=== PATIENT | female | born 1950 | race Caucasian/White ===

== ENCOUNTER → 2020-05-11 10:31 | Outpatient (BNVA) | payer MEDICARE, OTHER, SELFPAY | PROVIDERS: Visit Provider Family Medicine | DX: I10 Essential (primary) hypertension (principal); E78.00 Pure hypercholesterolemia, unspecified | CPT/HCPCS: 80053; 80061; 85025 ==

== ENCOUNTER → 2020-05-26 13:06 | Outpatient (BNVA) | payer MEDICARE, OTHER, SELFPAY | PROVIDERS: Visit Provider Surgery | DX: K22.2 Esophageal obstruction (principal) | CPT/HCPCS: 87635 ==

== ENCOUNTER 2020-05-31 08:26 | Day surgery (SDC) | payer MEDICARE, OTHER, SELFPAY ==
[2020-05-31 08:49] VITALS: BP 134/67; PULSE 85; RESP 18; TEMP 36.4; O2SAT 96
--- NOTE | 2020-05-31 08:50 | P.HP_ITS ---
Same Day Surgery H&P Indication for Procedure/HPI DATE OF PROCEDURE: May 31, 2020 CHIEF COMPLAINT/INDICATIONFOR SURGICAL PROCEDURE: Dysphagia PREOP DIAGNOSIS: Esophageal stenosis PLANNED PROCEDRUE: Operation Date: 05/31/20 09:30 Proposed Procedures p EGD Dilation W/ Balloon 93404 K22.2(Not Applicable) - Adrian Vizcarra MD Medications/Allergies* Home Medications Medication Instructions Recorded Confirmed Type acetaminophen 500 mg capsule 500 mg PO BID PRN cap 10/14/19 05/27/20 History aspirin 81 mg tablet,delayed 81 mg PO DAILY 10/14/19 05/27/20 History release cetirizine 10 mg tablet 5 mg PO DAILY PRN 10/14/19 05/27/20 History cholecalciferol (vitamin D3) 50 50 mcg PO DAILY 10/14/19 05/27/20 History mcg (2,000 unit) capsule docusate sodium 100 mg capsule 100 mg PO DAILY 10/14/19 05/27/20 History potassium 99 mg tablet 99 mg PO DAILY 10/14/19 05/27/20 History Allergies/Adverse Reactions Allergy/AdvReac Type Severity Reaction Status Date / Time codeine Allergy loopy Verified 05/11/20 08:01 feeling Pertinent History/Comorbid Conditions* Medical History (Updated 12/31/19 @ 13:59 by Raciel Quinteros MD) Esophageal stenosis GERD without esophagitis History of hepatitis C Hypercholesteremia Hypertension Osteoarthritis Surgical History (Updated 01/11/20 @ 13:57 by Adrian Vizcarra MD) H/O tubal ligation History of thyroidectomy Family History (Updated 01/11/20 @ 13:50 by Greta Dimas LPN) Diabetes Brother Cancer Father lung Mother lung Brother lung Sister breast, lung Denies family history of CAD (coronary artery disease) Anesthesia complication Bleeding disorder Social History Smoking and tobacco status: current every day smoker Alcohol intake: never Household members: family Marital status: Single Current occupational status: retired History of recent travel: No Pertinent Exam Findings alert, oriented x 3 and regular rate & rhythm Recommendations Surgery/Procedure today Coding Level of Care Code Acute Technical Operations Specialist for Chg Myron
[2020-05-31] MEDS: sodium chloride 0.9% 1,000 ML 30 ML IV (09:11)
--- NOTE | 2020-05-31 09:33 | ANES.PREANE2 ---
Pre-Anesthetic Assessment Pre-Anesthetic Assessment: Height/Weight: Height 1.6 m Weight 78.018 kg Temp Pulse Resp BP Pulse Ox 97.5 F L 85 18 134/67 96 05/31/20 08:49 05/31/20 08:49 05/31/20 08:49 05/31/20 08:49 05/31/20 08:49 Preop Diagnosis: Esophageal stenosis Proposed Procedure: Operation Date: 05/31/20 09:30 Proposed Procedures p EGD Dilation W/ Balloon 48563 K22.2(Not Applicable) - Adrian Vizcarra MD Familial anesthetic complications: None Was Beta Maddison taken within 24 hours: N/A Last intake: Intake Last Liquid Date 05/30/20 Last Liquid Time 23:30 Last Solid Date 05/30/20 Last Solid Time 17:30 Social: Social History: Tobacco and No alcohol Exam: Pre-Anes Outpt Exam: alert, oriented x 3, clear to auscultation bilaterally and regular rate & rhythm Airway: Cervical ROM: WNL MP: 3 Dentition: Other (missing) CV/HEM: CV/HEM: HTN Hepatic: Hepatic: Hepatitis (C) GI: Comments: esophogeal stenosis Metabolic: Metabolic: Hyperlipidemia Anesthetic Plan: ASA status: 3 Anesthesia: MAC Risk of > 500 ml blood loss (7ml/kg in children): No Meds/Allergies Current Medications: Current Medications Generic Name Dose Route Start Last Admin Trade Name Freq PRN Reason Stop Dose Admin Sodium Chloride 1,000 mls @ 30 ml s/hr 05/31/20 08:45 05/31/20 09:11 Sodium Chloride 0.9% IV 06/01/20 08:44 30 mls/hr .Q24H NEGRITO Administration PFSH Anesthesia PFSH: Medical History Esophageal stenosis GERD without esophagitis History of hepatitis C Hypercholesteremia Hypertension Osteoarthritis Surgical History H/O tubal ligation History of thyroidectomy Family History Father Cancer lung Mother Cancer lung Brother Cancer lung Diabetes Sister Cancer breast, lung Denies family history of CAD (coronary artery disease) Anesthesia complication Bleeding disorder Social History Smoking and tobacco status: current every day smoker Alcohol intake: never Household members: family Marital status: Single Current occupational status: retired History of recent travel: No Data Anesthesia Cardiac Studies: No Data to Display
[2020-05-31 10:39] VITALS: BP 128/65; PULSE 83; RESP 18; TEMP 36.3; O2SAT 98
--- NOTE | 2020-05-31 10:41 | ANE.PACU2 ---
Inpatient post-anesthesia follow up: Airway intact: Yes Vital signs: Temperature 97.3 F Pulse Rate 83 Respiratory Rate 18 Blood Pressure 128/65 Pulse Oximetry 98 Oxygen Delivery Me thod Nasal Cannula Oxygen Flow Rate 2 Fraction of Inspir ed Oxygen Hydration adequate: Yes Nausea and vomiting: No Pain level: 1 Mental status: Baseline
--- NOTE | 2020-05-31 10:43 | SUR.OPER ---
1020 Balloon dilation with 12, 13.5, 15 and 15 16.5 and 18
[2020-05-31 10:49] VITALS: BP 129/85; PULSE 64; RESP 18; O2SAT 100
== END 2020-05-31 10:55 | disposition home or self-care (01) ==
PROVIDERS: Visit Provider Surgery
DX: K22.2 Esophageal obstruction (principal); I10 Essential (primary) hypertension; E78.5 Hyperlipidemia, unspecified; E78.00 Pure hypercholesterolemia, unspecified; E89.0 Postprocedural hypothyroidism; Z80.1 Family history of malignant neoplasm of trachea, bronchus and lung; F17.200 Nicotine dependence, unspecified, uncomplicated; Z86.19 Personal history of other infectious and parasitic diseases; Z79.82 Long term (current) use of aspirin
CPT/HCPCS: 12345; 43239; 43249; 88305; J2704; J7030

== ENCOUNTER 2021-03-12 19:42 | Emergency (ER) | payer MEDICARE, SELFPAY ==
[2021-03-12 19:50] VITALS: BP 154/73; PULSE 96; RESP 17; TEMP 36.6; O2SAT 98; BMI 30.1
--- NOTE | 2021-03-12 22:15 | W.ED.ABDPA2 ---
HPI - Abdominal Pain General: Chief Complaint: Airway/Esophagus Foreign Body Stated Complaint: food stuck in throat Time Seen by Provider: 03/12/21 22:15 History of Present Illness: HPI narrative: 71-year-old female comes in today with complaints of food bolus. Patient states that she was attempting to eat some pork chop this afternoon and swallowed it but it got stuck. Patient reports that she has had issues with this in the past with her last esophageal dilation done May of last year. Patient takes famotidine routinely for her reflux. Patient appears well. Patient appears in mild discomfort but no acute distress. Patient is unable to swallow liquids without regurgitation occurring. Review of Systems General: Reports: 10 or more systems reviewed and unremarkable except in HPI and below GI: Reports: dysphagia PFSH ED PFSH: Medical History Esophageal stenosis GERD without esophagitis History of hepatitis C Hypercholesteremia Hypertension Osteoarthritis Surgical History H/O esophagogastroduodenoscopy (05/31/20) with balloon dilation H/O tubal ligation History of thyroidectomy Family History Father Cancer lung Mother Cancer lung Brother Cancer lung Diabetes Sister Cancer breast, lung Denies family history of CAD (coronary artery disease) Anesthesia complication Bleeding disorder Social History Smoking and tobacco status: current every day smoker Alcohol intake: never Household members: family Marital status: Single Current occupational status: retired History of recent travel: No Physical Exam Const: COMMON NORMALS: no acute distress and patient oriented x3 GENERAL APPEARANCE: cooperative HENMT: COMMON NORMALS: normocephalic, TM's normal bilaterally and Normal external nose present HEAD & SCALP: normal to inspection and normocephalic NOSE: Normal external nose present TYMPANIC MEMBRANE: TM's normal bilaterally MOUTH: Normal oral and palatal mucosa present THROAT: posterior oropharynx normal Eye: GENERAL EYE: appearance normal, both eyes and all related structures Neck/C-Spine: COMMON NORMALS: full ROM Chest: COMMONS NORMALS: normal inspection of the chest Resp: COMMON NORMALS: normal respiratory effort EFFORT & INSPECTION: Yes able to speak in complete sentences Cardio: COMMON NORMALS: regular rate and regular rhythm RATE: regular rate RHYTHM: regular rhythm GI: COMMON NORMALS: Soft to palpation and non-tender PALPATION: Yes Soft to palpation : COMMON NORMALS: Yes no CVA tenderness BLADDER/KIDNEY EXAM: Yes no CVA tenderness Back/Pelvis: COMMON NORMALS: no CVA tenderness and thoracic and lumbar spine normal to inspection Extremity: COMMON NORMALS: normal to inspection Neuro: COMMON NORMALS: patient oriented x3 and moves all extremities Psych: COMMON NORMALS: mental status grossly normal and cooperative Skin: COMMON NORMALS: no rashes or lesions noted GENERAL SKIN EXAM: no rashes or lesions noted Course ED course: 2304, discussed patient with Dr. Padilla who recommended we try therapy with sublingual nitro, 1 mg of glucagon, and a coke. Reviewed this with patient who was agreed to try. 2329, patient reported resolution of food bolus. Patient was able to drink water without pain or discomfort. No changes in auscultation of lung sounds. No abdominal pain. Patient denied any pain otherwise. Vital Signs: Vital signs: Vital Signs Temperature 97.9 F 03/12/21 19:50 Pulse Rate 96 03/12/21 19:50 Respiratory Rate 17 03/12/21 19:50 Blood Pressure 154/73 03/12/21 19:50 Pulse Oximetry 98 03/12/21 19:50 MDM - Abdominal Pain MDM Narrative: Medical decision making narrative: Patient came in tonight for a esophageal obstruction with a food bolus. On exam patient was in no acute distress. Patient was frequently spitting out clear fluid. Patient reports she had tried drinking water several times without being able to pass the piece of meat that she was eating. On exam abdomen was soft and nontender. Lungs were wheezy due to patient's chronic COPD. Vital signs were normal. Differential diagnosis includes esophageal stricture, food bolus, esophageal rupture. Chest x-ray showed a hiatal hernia but no obvious abnormality. Patient was treated with 1 nitroglycerin tablet under the tongue, 1 mg of glucagon IV push, followed by a Coke. Patient was able to pass the bolus with no difficulty. Patient denied any pain or discomfort and was able to drink water without any other signs or symptoms of esophageal rupture. Patient was released to home recommended to increase her famotidine to 20 mg twice a day and to follow-up with primary care or surgeon for an EGD. Discharge Plan Discharge Patient Disposition: Home Clinical Impression: Bolus impaction of digestive tract, Esophageal stenosis Condition: Stable Prescriptions: No Action potassium 99 mg tablet 99 mg PO DAILY RF: 0 cholecalciferol (vitamin D3) 50 mcg (2,000 unit) capsule 50 mcg PO DAILY RF: 0 aspirin 81 mg tablet,delayed release (DR/EC) 81 mg PO DAILY RF: 0 cetirizine [24Hour Allergy] 10 mg tablet 5 mg PO DAILY PRN (Reason: Pain) RF: 0 docusate sodium [Stool Softener] 100 mg capsule 100 mg PO DAILY RF: 0 acetaminophen 500 mg capsule 500 mg PO BID PRN (Reason: Pain) RF: 0 famotidine 20 mg tablet 20 mg PO DAILY Qty: 90 RF: 1 lisinopril 40 mg tablet 40 mg PO DAILY 90 Days Qty: 90 RF: 1 pravastatin 20 mg tablet 20 mg PO DAILY 90 Days Qty: 90 RF: 1 amlodipine 5 mg tablet See Rx Instructions .ROUTE .COMPLEX Qty: 90 RF: 0 tramadol 50 mg tablet 50 mg PO BID PRN (Reason: pain) 90 Days Qty: 180 RF: 0 Discharge Orders: Discharge ED (Routine); Ordered 03/12/21 Ordered By: Dano Lewis Referrals: Raciel Quinteros MD [Primary Care Provider] - Discharge Diet: Usual diet Discharge Activity: Increase activity as tolerated Patient Instructions: Esophageal Stricture (ED), Opioid Safety Activity Restrictions/Additional Instructions: Increase famotidine 20 mg to twice a day. Once in the morning once in the evening. Take smaller bites of food. Make sure to chew thoroughly meat. Drink plenty of water with meals. Follow-up with primary care or surgeon for stricture. Return to the ER as needed. Coding Level of Care Code ED Mechanical Maintenance Engineer for Chg Fwd Exam Comprehensive
--- NOTE | 2021-03-12 22:21 | XRR_ITS ---
PROCEDURE INFORMATION: Exam: XR Chest Exam date and time: 03/12/2021 10:21 PM Age: 71 years old Clinical indication: Other: Feels like a piece of meat is stuck; Prior surgery; Surgery date: 6+ months; Additional info: Food bolus TECHNIQUE: Imaging protocol: XR of the chest. Views: 2 views. COMPARISON: No relevant prior studies available. FINDINGS: Tubes, catheters and devices: Surgical clips projecting over the upper mediastinum and lower neck. Lungs: Lungs are mildly hyperinflated. No focal consolidation. No pulmonary edema. Pleural spaces: No pleural effusion. No pneumothorax. Heart/Mediastinum: Small hiatal hernia. The cardiac silhouette is mildly enlarged. Mediastinal contours are unremarkable. No pneumomediastinum. No radiopaque foreign body. Bones/joints: Unremarkable for age. XR/XR chest 2V* [id number] IMPRESSION: 1. No pneumomediastinum. No radiopaque foreign body. CT scan of the chest may be obtained for further evaluation as clinically indicated. 2. Small hiatal hernia. 3. Incidental/nonacute findings are listed in the report.
[2021-03-12] MEDS: nitroglycerin 0.4 mg sublingual Tablet SUBLINGUAL (23:04)
[2021-03-12 23:34] VITALS: BP 117/59; PULSE 94; RESP 18; O2SAT 97
== END 2021-03-12 23:34 | disposition home or self-care (01) ==
PROVIDERS: Emergency Provider Nurse Practitioner Family; PCP Family Medicine
DX: T18.128A Food in esophagus causing other injury, initial encounter (principal); K22.2 Esophageal obstruction; K44.9 Diaphragmatic hernia without obstruction or gangrene; K21.9 Gastro-esophageal reflux disease without esophagitis; E78.00 Pure hypercholesterolemia, unspecified; I10 Essential (primary) hypertension; J44.9 Chronic obstructive pulmonary disease, unspecified; F17.200 Nicotine dependence, unspecified, uncomplicated
CPT/HCPCS: 71046; 99283; J1610

== ENCOUNTER → 2021-04-07 11:50 | Outpatient (BNVA) | payer MEDICARE, SELFPAY | PROVIDERS: PCP Family Medicine; Visit Provider Surgery | DX: Z20.822 Contact with and (suspected) exposure to COVID-19 (principal); K22.2 Esophageal obstruction | CPT/HCPCS: 87635 ==

== ENCOUNTER 2021-04-13 07:41 | Day surgery (SDC) | payer MEDICARE, SELFPAY ==
[2021-04-10 10:25] VITALS: BMI 28.5
[2021-04-13 08:04] VITALS: BP 136/64; PULSE 78; RESP 18; TEMP 36.8; O2SAT 100
[2021-04-13] MEDS: sodium chloride 0.9% 1,000 ML 30 ML IV (08:13)
--- NOTE | 2021-04-13 08:24 | ANES.PREANE2 ---
Pre-Anesthetic Assessment Pre-Anesthetic Assessment: Height/Weight: Height 1.6 m Weight 73.028 kg Temp Pulse Resp BP Pulse Ox 98.2 F 78 18 136/64 100 04/13/21 08:04 04/13/21 08:04 04/13/21 08:04 04/13/21 08:04 04/13/21 08:04 Preop Diagnosis: upper gi symptoms Proposed Procedure: Operation Date: 04/13/21 08:30 Proposed Procedures p EGD Dilation 27540 R13.10 K22.2(Not Applicable) - Adrian Vizcarra MD Familial anesthetic complications: none Was Beta Maddison taken within 24 hours: N/A Was Clonidine taken within 24 hours: N/A Last intake: Intake Last Liquid Date 04/12/21 Last Liquid Time 23:00 Last Solid Date 04/12/21 Last Solid Time 18:30 Last Intake: 23:00 Social: Social History: Tobacco and No alcohol Packs per day: 1ppd Pack years: 50+ Exam: Pre-Anes Outpt Exam: alert, oriented x 3, clear to auscultation bilaterally and regular rate & rhythm Airway: Submandibular: WNL Cervical ROM: WNL MP: 2 Dentition: Full (multiple loose decayed, very poor) Pulmonary: Pulmonary: Cough, GUILLERMO and SOB CV/HEM: CV/HEM: HTN : : None reported Hepatic: Hepatic: Cirrohsis (C, treated) GI: GI: GERD Metabolic: Metabolic: None reported Musc/skel: Musc/skel: Lower Back Pain and OA/DJD Neuropsych: Neuropsych: None reported Anesthetic Plan: ASA status: 2 Anesthesia: MAC Risk of > 500 ml blood loss (7ml/kg in children): No Meds/Allergies Current Medications: Current Medications Generic Name Dose Route Start Last Admin Trade Name Freq PRN Reason Stop Dose Admin Sodium Chloride 1,000 mls @ 30 ml s/hr 04/13/21 08:00 04/13/21 08:13 Sodium Chloride 0.9% IV 04/14/21 07:59 30 mls/hr .Q24H NEGRITO Administration PFSH Anesthesia PFSH: Medical History (Updated 04/03/21 @ 08:26 by Adrian Vizcarra MD) Esophageal stenosis GERD without esophagitis History of hepatitis C Hypercholesteremia Hypertension Osteoarthritis Surgical History (Updated 04/03/21 @ 08:26 by Adrian Vizcarra MD) H/O esophagogastroduodenoscopy (05/31/20) with balloon dilation H/O tubal ligation History of colonoscopy 2018 History of thyroidectomy Family History Father Cancer lung Mother Cancer lung Brother Cancer lung Diabetes Sister Cancer breast, lung Denies family history of CAD (coronary artery disease) Anesthesia complication Bleeding disorder Social History Smoking and tobacco status: current every day smoker Alcohol intake: never Household members: family Marital status: Single Current occupational status: retired History of recent travel: No Data Anesthesia Cardiac Studies: No Data to Display
--- NOTE | 2021-04-13 08:32 | W.PM.OPSUD ---
Surgery/Procedure H&P Update DATE OF PROCEDURE: April 13, 2021 DATE H&P PERFORMED: 04/03/21 H&P UPDATE INFORMATION: I have reviewed H&P completed within last 30 days, I have examined patient prior to procedure and No changes to prior documentation PREOP DIAGNOSIS: upper gi symptoms PLANNED PROCEDURE: Operation Date: 04/13/21 08:30 Proposed Procedures p EGD Dilation 36515 R13.10 K22.2(Not Applicable) - Adrian Vizcarra MD
[2021-04-13 09:10] VITALS: BP 96/52; PULSE 92; RESP 16; TEMP 36.4; O2SAT 98
[2021-04-13 09:20] VITALS: BP 102/58; PULSE 79; RESP 18; TEMP 36.6; O2SAT 99
== END 2021-04-13 09:37 | disposition home or self-care (01) ==
PROVIDERS: PCP Family Medicine; Visit Provider Surgery
DX: R13.10 Dysphagia, unspecified (principal); K44.9 Diaphragmatic hernia without obstruction or gangrene; K22.2 Esophageal obstruction; I10 Essential (primary) hypertension; Z86.19 Personal history of other infectious and parasitic diseases; E78.00 Pure hypercholesterolemia, unspecified; M19.90 Unspecified osteoarthritis, unspecified site; F17.210 Nicotine dependence, cigarettes, uncomplicated
CPT/HCPCS: 43239; 43249; 88305; 96360; J2704; J7030

== ENCOUNTER 2021-04-17 12:35 | Outpatient (CLI) | payer MEDICARE, SELFPAY | END 2021-04-17 12:36 | disposition home or self-care (01) | LOC: LAB 06-16 15:34 | PROVIDERS: PCP Family Medicine; Visit Provider Family Medicine | DX: I35.0 Nonrheumatic aortic (valve) stenosis (principal); Z72.0 Tobacco use; E78.00 Pure hypercholesterolemia, unspecified; I10 Essential (primary) hypertension | CPT/HCPCS: 80053; 80061; 82728; 83540; 85025 ==

== ENCOUNTER 2021-04-18 09:56 | Outpatient (CLI) | payer MEDICARE, SELFPAY ==
[2021-04-18] VITALS (12 sets, daily range): BP systolic 119–185; BP diastolic 70–86; PULSE 76–105; RESP 15–18; TEMP 36.1–36.7; O2SAT 95–100; BMI 28.8
--- NOTE | 2021-04-18 10:55 | ED_ITS ---
HPI - Weakness General: Chief complaint: Weakness Stated complaint: PCP SENT FOR BLOOD Time Seen by Provider: 04/18/21 10:15 History of Present Illness: HPI Narrative: 71-year-old female sent to the ER by her primary care doctor. She is feeling weak lightheaded has been for some time was seen by her primary care doctor yesterday labs were done the results came back today and showed a hemoglobin of 5.7. She previously had blood transfusions. She denies any hematochezia melena hematemesis coffee-ground a few weeks ago she had an esophageal dilation but has been doing well since then. She could not tell me anything about previous colonoscopy. She has not had any noted blood loss or surgeries recently. She denies taking any anticoagulants. MD Complaint: generalized weakness Onset (ago): week(s) Duration: constant Location: generalized Severity: mild Relieving factors: none Exacerbating factors: none Associated symptoms: Denies chest pain, chills, confusion, melena, decreased appetite, diaphoresis, dysuria, easy bruising, fever(s), headache(s), myalgias, nausea, rash, short of breath, syncope or vomiting Review of Systems Const: Denies: fever(s), chills or diaphoresis ENMT: Denies: throat pain, ear or mastoid pain, nasal discharge or nasal congestion Card: Denies: chest pain or syncope Resp: Denies: dyspnea, productive cough or non-productive cough GI: Denies: nausea, vomiting or melena : Denies: dysuria Skin/Breast: Denies: rash or pruritus Neuro: Denies: headache(s) or confusion Clay/Lymph: Denies: easy bruising PFS ED PFSH: Medical History COPD (chronic obstructive pulmonary disease) Esophageal stenosis GERD without esophagitis History of hepatitis C Hypercholesteremia Hypertension Osteoarthritis Surgical History H/O esophagogastroduodenoscopy (04/13/21) with balloon dilation 05/31/20: with dilation H/O tubal ligation History of colonoscopy 2018 History of thyroidectomy Family History Father Cancer lung Mother Cancer lung Brother Cancer lung Diabetes Sister Cancer breast, lung Denies family history of CAD (coronary artery disease) Anesthesia complication Bleeding disorder Social History Smoking and tobacco status: current every day smoker Alcohol intake: never Household members: family Marital status: Single Current occupational status: retired History of recent travel: No Physical Exam Const: COMMON NORMALS: no acute distress GENERAL APPEARANCE: cooperative and comfortable ORIENTATION/CONSCIOUSNESS: Yes awake, Yes oriented to person, Yes oriented to place and Yes oriented to time HENMT: COMMON NORMALS: normocephalic, atraumatic and hearing grossly normal bilaterally HEAD & SCALP: normocephalic and atraumatic Neck/C-Spine: COMMON NORMALS: no JVD Resp: COMMON NORMALS: normal respiratory effort, No retractions, No use of accessory muscles and clear to auscultation bilaterally AUSCULTATION: clear to auscultation bilaterally Cardio: COMMON NORMALS: no JVD, regular rate, regular rhythm and No murmurs present (Cardio) RATE: regular rate RHYTHM: regular rhythm GI: COMMON NORMALS: Soft to palpation and No hepatosplenomegaly present AUSCULTATION: Yes normoactive bowel sounds PALPATION: Yes Soft to palpation, No Tenderness to palpation present (GI), No Guarding due to palpation present (GI) and Yes No hepatosplenomegaly present Extremity: COMMON NORMALS: normal to inspection, capillary refill normal, no clubbing, cyanosis or edema, no calf tenderness and no pedal edema Neuro: SENSORIUM/ORIENTATION: Yes oriented to person, Yes oriented to place and Yes oriented to time Skin: COMMON NORMALS: no rashes or lesions noted GENERAL SKIN EXAM: no rashes or lesions noted Course Vital Signs: Vital signs: Vital Signs Temperature 97.9 F 04/18/21 13:12 Pulse Rate 78 04/18/21 13:29 Respiratory Rate 18 04/18/21 13:29 Blood Pressure 153/71 04/18/21 13:29 Pulse Oximetry 99 04/18/21 13:12 MDM - Weakness MDM Narrative: Medical decision making narrative: Repeat hemoglobin this morning is 6 1. We will transfuse her 2 units and discharge her home will do it as an outpatient to better discuss left collection. Initial anemia work-up dry prior to transfusion so as not to lose when no opportunity staff in the ER contacted Dr. Quinteros's office to ensure that he was aware and could follow-up with results later this week. Patient advised to follow-up with her primary care doctor later this week. Lab Data: Labs: Lab Results 04/18/21 04/18/21 04/18/21 10:34 10:34 10:34 WBC RBC Hgb Hct MCV MCH MCHC RDW Plt Count MPV Neut % (Auto) Lymph % (Auto) [place] % (Auto) Eos % (Auto) Baso % (Auto) Reticulocyte % (Au to) Neut # (Auto) Lymph # (Auto) [place] # (Auto) Eos # (Auto) Baso # (Auto) Nucleated RBC % (a uto) Nucleated RBCs # Haptoglobin 170.0 mg/L mg/L (30-200) Sodium 135 mmol/L L mmol /L (136-145) Potassium 4.2 mmol/L mmol/L (3.5-5.1) Chloride 102 mmol/L mmol/L (98-107) Carbon Dioxide 23 mmol/L mmol/L (22-29) Anion Gap 14.2 (5-19) BUN 22 mg/dL mg/dL (8-23) Creatinine 1.1 mg/dL H mg/dL (0.5-0.9) GFR Calculation Not Reportable Glucose 93 mg/dL mg/dL (65-115) Calculated Osmolal ity 283 mOsm/kg L mOs m/kg (285-295) Calcium 8.9 mg/dL mg/dL (8.5-10.5) Iron 12 ug/dL L ug/dL (37-145) TIBC 390 mcg/dl mcg/dl % Saturation 3.0 % L % (20-50) Unsat Iron Binding 378 ug/dL H ug/dL (112-347) Total Bilirubin 0.2 mg/dL mg/dL (0.15-1.2) AST 7 U/L U/L (0-32) ALT < 5 U/L U/L (0-33) Alkaline Phosphata se 63 IU/L IU/L (35-105) Total Protein 7.2 g/dL g/dL (6.6-8.7) Albumin 4.1 g/dL g/dL (3.5-5.2) Globulin 3.1 g/dL g/dL (1.3-4.6) Vitamin B12 416 pg/mL pg/mL (232-1245) Folate 5.2 ng/mL ng/mL (4.8-37.3) Blood Type O Positive Rho(D) Type Positive Antibody Screen Negative Crossmatch See Detail 04/18/21 10:34 WBC 3.7 10^3/uL L 10^ 3/uL (4.0-10.0) RBC 2.59 10^6/uL L 10 ^6/uL (4.1-5.3) Hgb 6.1 g/dL L* g/dL (11.5-15.3) Hct 22.0 % L % (37.0-47.0) MCV 84.9 fl fl (81-99) MCH 23.6 pg L pg (28.0-34.0) MCHC 27.7 g/dL L g/dL (30.0-36.0) RDW 16.2 % H % (12.1-15.1) Plt Count 195 10^3/cmm 10^3 /cmm (130-400) MPV 9.9 fL fL (7.4-10.4) Neut % (Auto) 50.6 % % Lymph % (Auto) 37.6 % % [place] % (Auto) 6.2 % % Eos % (Auto) 3.8 % % Baso % (Auto) 1.3 % % Reticulocyte % (Au to) 2.8 % H % (0.5-2.0) Neut # (Auto) 1.88 10^3/uL 10^3 /uL (1.8-7.7) Lymph # (Auto) 1.4 10^3/uL 10^3/ uL (0.8-4.8) [place] # (Auto) 0.2 10^3/uL 10^3/ uL (0.2-0.9) Eos # (Auto) 0.1 10^3/uL 10^3/ uL (0.0-0.8) Baso # (Auto) 0.1 10^3/uL 10^3/ uL (0.0-0.1) Nucleated RBC % (a uto) 0 % % Nucleated RBCs # 0.0 /100WBC /100W BC Haptoglobin Sodium Potassium Chloride Carbon Dioxide Anion Gap BUN Creatinine GFR Calculation Glucose Calculated Osmolal ity Calcium Iron TIBC % Saturation Unsat Iron Binding Total Bilirubin AST ALT Alkaline Phosphata se Total Protein Albumin Globulin Vitamin B12 Folate Blood Type Rho(D) Type Antibody Screen Crossmatch Discharge Plan Discharge Patient Disposition: Placed in Observation Clinical Impression: Anemia Coding Level of Care Code ED Rigging And Controls Aircraft Mechanic for Chg Fwd Exam Comprehensive
[2021-04-18 11:05] LABS: Basophils # 0.1 10^3/uL (0.0-0.1); Basophils % 1.3 %; Eosinophils # 0.1 10^3/uL (0.0-0.8); Eosinophils % 3.8 %; Lymphocytes # 1.4 10^3/uL (0.8-4.8); Lymphocytes % 37.6 %; Mean Corpuscular HGB Conc 27.7 g/dL (30.0-36.0); Mean Corpuscular Hemoglobin 23.6 pg (28.0-34.0); Mean Corpuscular Volume 84.9 fl (81-99); Mean Platelet Volume 9.9 fL (7.4-10.4); Monocytes # 0.2 10^3/uL (0.2-0.9); Monocytes % 6.2 %; Neutrophils # 1.88 10^3/uL (1.8-7.7); Neutrophils % 50.6 %; Nucleated Red Blood Cells % 0 %; Platelet Count 195 10^3/cmm (130-400); Red Blood Count 2.59 10^6/uL (4.1-5.3); Red Cell Distribution Width 16.2 % (12.1-15.1); Reticulocyte % 2.8 % (0.5-2.0); White Blood Count 3.7 10^3/uL (4.0-10.0)
[2021-04-18 11:17] LABS: Hemoglobin 6.1 g/dL (11.5-15.3)
[2021-04-18 11:18] LABS: Alanine Aminotransferase < 5 U/L (0-33); Albumin Level 4.1 g/dL (3.5-5.2); Alkaline Phosphatase 63 IU/L (35-105); Anion Gap 14.2 (5-19); Aspartate Amino Transferase 7 U/L (0-32); Blood Urea Nitrogen 22 mg/dL (8-23); Calcium 8.9 mg/dL (8.5-10.5); Carbon Dioxide 23 mmol/L (22-29); Chloride 102 mmol/L (98-107); Globulin 3.1 g/dL (1.3-4.6); Glucose 93 mg/dL (65-115); Iron 12 ug/dL (37-145); Osmolality Calculated 283 mOsm/kg (285-295); Potassium 4.2 mmol/L (3.5-5.1); Sodium 135 mmol/L (136-145); Total Bilirubin 0.2 mg/dL (0.15-1.2); Total Iron Binding Capacity 390 mcg/dl; Total Protein 7.2 g/dL (6.6-8.7); Unsaturated Iron Binding 378 ug/dL (112-347)
[2021-04-18 11:32] LABS: Vitamin B12 416 pg/mL (232-1245)
[2021-04-18 11:35] LABS: Folate Level 5.2 ng/mL (4.8-37.3)
--- NOTE | 2021-04-18 11:55 | PC.PHAR ---
pt states she takes care of her own medications-pt states she didnt get to start the chantix -medication has a recall on it-
--- NOTE | 2021-04-18 19:23 | PC.NURSE ---
Report from QUINN Rahman
[2021-04-19 12:07] LABS: Erythropoietin 319.4 mIU/mL (2.6-18.5)
== END 2021-04-18 19:58 | disposition home or self-care (01) ==
LOC: ER 10:59 → OPMS 18:32
PROVIDERS: Emergency Provider Family Medicine; PCP Family Medicine; Visit Provider Internal Medicine
DX: D64.9 Anemia, unspecified (principal); R53.1 Weakness; J44.9 Chronic obstructive pulmonary disease, unspecified; K21.9 Gastro-esophageal reflux disease without esophagitis; Z86.19 Personal history of other infectious and parasitic diseases; E78.00 Pure hypercholesterolemia, unspecified; I10 Essential (primary) hypertension; M19.90 Unspecified osteoarthritis, unspecified site; F17.210 Nicotine dependence, cigarettes, uncomplicated
CPT/HCPCS: 36430; 80053; 82607; 82668; 82746; 83010; 83540; 83550; 85025; 85045; 86850; 86900; 86920; P9016

== ENCOUNTER → 2021-04-24 11:17 | Outpatient (BNVA) | payer MEDICARE, SELFPAY | PROVIDERS: PCP Family Medicine; Visit Provider Family Medicine | DX: D64.9 Anemia, unspecified (principal); D50.8 Other iron deficiency anemias | CPT/HCPCS: 85018 ==

== ENCOUNTER 2021-05-04 10:46 | Outpatient (RCR) | payer MEDICARE, SELFPAY ==
[2021-04-27 10:38] VITALS: BP 151/68; PULSE 110; RESP 18; TEMP 36.4; O2SAT 99
[2021-04-27] MEDS: ferric carboxy (IVPB) 750 MG in sodium chloride 0.9% (100 ml) 100 ML 345 MG IV (10:50)
[2021-05-04 10:52] VITALS: BP 150/71; PULSE 85; RESP 18; TEMP 36.8; O2SAT 99
[2021-05-04] MEDS: ferric carboxy (IVPB) 750 MG in sodium chloride 0.9% (100 ml) 100 ML 345 MG IV (11:12)
== END 2021-05-14 23:59 | disposition home or self-care (01) ==
LOC: GILAB 10:46
PROVIDERS: PCP Family Medicine; Visit Provider Family Medicine
DX: D50.9 Iron deficiency anemia, unspecified (principal)
CPT/HCPCS: 96365; J1439

== ENCOUNTER → 2021-05-09 12:26 | Outpatient (BNVA) | payer MEDICARE, SELFPAY | PROVIDERS: PCP Family Medicine; Visit Provider Family Medicine | DX: M16.12 Unilateral primary osteoarthritis, left hip (principal); D50.8 Other iron deficiency anemias | CPT/HCPCS: 80053; 82668; 82728; 83550; 85025 ==

== ENCOUNTER 2021-05-10 10:30 | Outpatient (CLI) | payer MEDICARE, SELFPAY ==
--- NOTE | 2021-05-10 10:34 | XR_ITS ---
WS: [id number] HIP WITH PELVIS LEFT TECHNIQUE: 3 views of the left hip with pelvis CLINICAL INFORMATION: worsening pain left hip COMPARISON: None. FINDINGS: Advanced osteoarthritis left hip with joint space narrowing. Normal left femoral neck and proximal fe moral shaft. Normal left pubic rami. Pelvic phleboliths. No acute fractures. XR/XR hip LT 2-3V wo/w pel* [id number] IMPRESSION: Advanced osteoarthritis left hip. No acute fractures. Tonnis classification:
--- NOTE | 2021-05-10 11:30 | XR_ITS ---
WS: [id number] LUMBAR SPINE TECHNIQUE: 3 views of the lumbar spine CLINICAL INFORMATION: increasing pain in left hip and lower back COMPARISON: None. FINDINGS: Five ese-vol-weudsem lumbar vertebral bodies. Mild lumbar curve convex left. Pelvic phleboliths. Oste openia. Aortic calcification. Slight anterolisthesis L4 on L5. Slight retrolisthesis L1 on L2 and L2 on L3. Aortic calcification. Moderate facet arthropathy L5-S1. IMPRESSION: 1. Mild lumbar curve convex left. 2. No acute compression fractures. 3. Disc space narrowing worse at L1 L2-L3 and L4-L5. 4. Moderate facet arthropathy L5-S1. 5. Slight retrolisthesis L1 on L2 and L2 on L3. Slight anterolisthesis L4 on L5.
== END 2021-05-10 10:31 | disposition home or self-care (01) ==
PROVIDERS: PCP Family Medicine; Visit Provider Family Medicine
DX: M25.552 Pain in left hip (principal); M54.50 Low back pain, unspecified; M47.817 Spondylosis without myelopathy or radiculopathy, lumbosacral region
CPT/HCPCS: 72100; 73502

== ENCOUNTER 2021-05-30 12:50 | Outpatient (CLI) | payer MEDICARE, SELFPAY ==
--- NOTE | 2021-05-30 12:45 | USCV_ITS ---
Shikha Osei Age: 71 Gender: F : 1950 Exam Date: 05/30/2021 13:23 Ordering Phys: Raciel Quinteros MD Technologist: TYLER Exam Location: [facility] – [place] Indication: DYSPNEA BP: / HR: 67 Rhythm: Sinus Technical Quality: Adequate MEASUREMENTS (Male / Female) Normal Values 2D ECHO LV Diastolic Diameter PLAX 3.5 cm 4.2 - 5.9 / 3.9 - 5.3 cm LV Systolic Diameter PLAX 2.2 cm IVS Diastolic Thickness 1.1 cm 0.6 - 1.0 / 0.6 - 0.9 cm IVS Systolic Thickness 1.0 cm LVPW Diastolic Thickness 1.7 cm 0.6 - 1.0 / 0.6 - 0.9 cm LVPW Systolic Thickness 1.3 cm LVOT Diameter 2.0 cm LV Ejection Fraction 2D Teich 70.2 % LV Ejection Fraction MOD 2C 60.4 % LV Ejection Fraction 2C AL 62.5 % LA Diameter 4.3 cm LA Width 4.4 cm LA Height 5.5 cm RA Width 3.1 cm RA Height 4.9 cm Aorta at Sinotubular Diameter 2.3 cm DOPPLER AV Peak Velocity 238.5 cm/s LVOT Peak Velocity 204.0 cm/s AV Area Cont Eq vti 2.8 cm squared AV Area Cont Eq pk 2.7 cm squared MV E' Velocity 7.0 cm/s TR Peak Velocity 258.0 cm/s TR Peak Gradient 26.6 mmHg TR Mean Velocity 177.8 cm/s TR Mean Gradient 14.5 mmHg TR Velocity Time Integral 75.6 cm Right Atrial Pressure 3.0 mmHg Pulmonary Artery Systolic Pressu 29.6 mmHg RV Acceleration Time 0.2 s RV Ejection Time 0.3 s RV AcT/ET 0.5 FINDINGS Left Ventricle Normal left ventricular size and systolic function, EF 65 %. No regional wall motion abnormalities. Mild left ventricular hypertrophy. Grade I/IV diastolic dysfunction (abnormal relaxation filling pattern), normal to mildly elevated filling pressures. Right Ventricle The right ventricle is normal in size and function. Right Atrium The right atrium is normal in size. Left Atrium Mildly increased left atrial size. Mitral Valve Moderate mitral annular calcification. Mildly thickened mitral valve. Mild mitral valve regurgitation. Aortic Valve Thickened aortic valve. Tricuspid Valve Trace tricuspid valve regurgitation. Estimated pulmonary artery peak systolic pressure 30 mm of Hg. Pulmonic Valve Trace pulmonary valve regurgitation. Pericardium Normal pericardium without effusion. Aorta Normal ascending aorta dimension. CONCLUSIONS Normal left ventricular size and systolic function, EF 65 %. No regional wall motion abnormalities. Mild left ventricular hypertrophy. Grade I/IV diastolic dysfunction (abnormal relaxation filling pattern), normal to mildly elevated filling pressures. Mildly increased left atrial size. Moderate mitral annular calcification. Mildly thickened mitral valve. Trace tricuspid valveTrace pulmonary valve regurgitation. regurgitation. Estimated pulmonary artery peak systolic pressure 30 mm of Hg. Mild mitral valve regurgitation. Thickened aortic valve. There is no pericardial effusion. There are no intracardiac masses. No previous study is available for comparison. Dr Reagan Dent MD FACC (Electronically Signed) Final Date: 30 May 2021 21:11 S
== END 2021-05-30 12:51 | disposition home or self-care (01) ==
LOC: US 12:52
PROVIDERS: PCP Family Medicine; Visit Provider Family Medicine
DX: R06.00 Dyspnea, unspecified; I08.3 Combined rheumatic disorders of mitral, aortic and tricuspid valves
CPT/HCPCS: 80053; 80061; 82728; 83540; 85025; 93306

== ENCOUNTER → 2021-06-15 15:14 | Outpatient (BNVA) | payer MEDICARE, SELFPAY | PROVIDERS: PCP Family Medicine; Referring Provider Family Medicine; Visit Provider Orthopaedic Surgery | DX: M54.9 Dorsalgia, unspecified (principal); M51.37 Other intervertebral disc degeneration, lumbosacral region; M43.16 Spondylolisthesis, lumbar region | CPT/HCPCS: 72120 ==

== ENCOUNTER → 2021-06-28 09:53 | Outpatient (BNVA) | payer MEDICARE, SELFPAY | PROVIDERS: PCP Family Medicine; Referring Provider Orthopaedic Surgery; Visit Provider Anesthesiology Pain Medicine | DX: G89.29 Other chronic pain (principal); M47.816 Spondylosis without myelopathy or radiculopathy, lumbar region; M51.36 Other intervertebral disc degeneration, lumbar region; M43.16 Spondylolisthesis, lumbar region; M16.12 Unilateral primary osteoarthritis, left hip; F17.210 Nicotine dependence, cigarettes, uncomplicated; Z79.891 Long term (current) use of opiate analgesic | CPT/HCPCS: 99204 ==

== ENCOUNTER 2021-08-04 13:08 | Outpatient (CLI) | payer MEDICARE, SELFPAY ==
--- NOTE | 2021-08-04 13:45 | MR_ITS ---
WS: [id number] MRI LUMBAR SPINE NONCONTRAST HISTORY: M54.9 - Dorsalgia, unspecified COMPARISON: None available. TECHNIQUE: Sagittal and axial multisequence imaging is submitted. Increase in cervical lordosis and thoracic kyphosis and mild scoliosis. Mild central canal narrowing at C5-6 and C6-7 due to facet disease and disc disease. Benign hemangioma in T6. Mild straightening and RIGHT curvature of the lumbar spine. L1 and L2 retrolisthesis by 2 to 3 mm. Th is spaces are moderately narrowed and desiccated but greatest at L1-2 and L2-L3. Reactive marrow gee ges along the endplates of L1 and L2. No acute fractures. Conus terminates normally at L1-2 disc level. L1-L2: Moderate annular disc bulging and osteophytic ridging with mild ligamentum flavum and facet ar thritis. Effacement of ventral CSF with disc and osteophyte encroaching upon the traversing L2 nerve roots bilaterally. Moderate RIGHT foraminal stenosis also due to asymmetric disc bulging or protrusio n extending into the RIGHT foramen. L2-L3: Moderate annular disc bulging and osteophytic ridging. Moderate ligamentum flavum hypertrophy and facet arthritis. Disc and osteophyte encroachment upon the ventral thecal sac with deformity. Mod erate central and bilateral subarticular recess with mild foraminal stenosis. There is contact and di splacement of the traversing L3 nerve roots. L3-L4: Moderate annular disc bulging and osteophytic ridging with mild ligamentum flavum and facet ar thritis. Mild bilateral foraminal stenosis. Mild central and subarticular recess stenosis. There is c ontact on the traversing nerve roots bilaterally. L4-L5: Diffuse asymmetric disc bulging. Disc extends greatest to the LEFT into the LEFT subarticular recess and foramen. There is significant contact and displacement upon the traversing L4 nerve roots bilaterally but greatest involving the LEFT L4 nerve root. Mild to moderate bilateral foraminal steno sis, LEFT greater than RIGHT. Mild central stenosis. L5-S1: Diffuse annular disc bulging with focal central disc protrusion contacting the S1 nerve roots bilaterally. Moderate bilateral subarticular recess stenosis and mild central stenosis. No significan t foraminal stenosis. Mild facet arthritis. MR/MR lumbar spine wo con* [id number] IMPRESSION: 1. Multilevel disc and facet disease with stenoses throughout the lumbar spine . 2. Moderate bilateral subarticular recess stenosis and mild central stenosis a t L5-S1. 3. Mild to moderate subarticular recess and foraminal stenosis at L4-5. Most s ignificant contact on the LEFT L4 nerve root. 4. Moderate central with bilateral subarticular recess and mild foraminal sten osis at L2-3 with the most significant disc contact on the L3 nerve roots. 5. Mild contact on the traversing L4 nerve roots. 6. Moderate RIGHT foraminal stenosis at L1-2. RIGHT foraminal disc protrusion contacting the nerve roots on the RIGHT.
== END 2021-08-04 13:09 | disposition home or self-care (01) ==
LOC: RADSHAW 13:15
PROVIDERS: PCP Family Medicine; Visit Provider Orthopaedic Surgery
DX: M48.07 Spinal stenosis, lumbosacral region (principal); M48.061 Spinal stenosis, lumbar region without neurogenic claudication
CPT/HCPCS: 72148

== ENCOUNTER → 2021-08-07 14:51 | Outpatient (BNVA) | payer MEDICARE, SELFPAY | PROVIDERS: PCP Family Medicine; Visit Provider Surgery | DX: Z20.822 Contact with and (suspected) exposure to COVID-19 (principal); D50.8 Other iron deficiency anemias | CPT/HCPCS: 87635 ==

== ENCOUNTER → 2021-08-09 08:49 | Outpatient (BNVA) | payer MEDICARE, SELFPAY | PROVIDERS: PCP Family Medicine; Referring Provider Family Medicine; Visit Provider Specialist | DX: M16.0 Bilateral primary osteoarthritis of hip (principal); M48.062 Spinal stenosis, lumbar region with neurogenic claudication | CPT/HCPCS: 73502 ==

== ENCOUNTER 2021-08-11 07:03 | Day surgery (SDC) | payer MEDICARE, SELFPAY ==
[2021-08-09 15:01] VITALS: BMI 30.1
--- NOTE | 2021-08-11 07:26 | ANES.PREANE2 ---
Pre-Anesthetic Assessment Height/Weight: Height 1.6 m Weight 77.111 kg Preop Diagnosis: diagnostic Operation Date: 08/11/21 08:00 Proposed Procedures p Colonoscopy 21807 K22.2(Not Applicable) - Adrian Vizcarra MD Was Beta Maddison taken within 24 hours: N/A Was Clonidine taken within 24 hours: N/A Social Tobacco Exam alert, oriented x 3, clear to auscultation bilaterally and regular rate & rhythm Airway Submandibular: within normal limits Cervical ROM: within normal limits Mallampati: Class I Dentition: chipped Comments: Comments: Missing teeth, denies loose teeth Pulmonary Chronic Obstructive Pulmonary Disease CV/HEM Hypertension METS = 4 TTE 06/04 CONCLUSIONS ?Normal left ventricular size and systolic function, EF 65 %. No ?regional wall motion abnormalities. Mild left ventricular ?hypertrophy. Grade I/IV diastolic dysfunction (abnormal ?relaxation filling pattern), normal to mildly elevated filling ?pressures. ?Mildly increased left atrial size. ?Moderate mitral annular calcification. ?Mildly thickened mitral valve. ?Trace tricuspid valveTrace pulmonary valve regurgitation. ? regurgitation.? ?Estimated pulmonary artery peak systolic pressure 30 mm of Hg. ?Mild mitral valve regurgitation. ? Thickened aortic valve. ?There is no pericardial effusion. ?There are no intracardiac masses. ?No previous study is available for comparis Hepatic Hepatitis (Hepatitis C Hx) GI Gastroesophageal Reflux Disease Metabolic Thyroid Disease (Thyroidectomy) Neuropsych None reported Anesthetic Plan ASA status: 2 Anesthesia: Anesthesia Evaluation and MAC Other: I discussed with the patient risks, goals, and benefits of MAC and general anesthesia. We discussed spectrum of MAC anesthesia including conversion to general as well as possibility of recall of intraoperative stimuli including discomfort/pain. Patient agrees to proceed with MAC. Risk of > 500 ml blood loss (7ml/kg in children): No Medications/Allergies Home Medications Medication Instructions Recorded Confirmed Last Taken Type acetaminophen 500 mg capsule 1,000 mg PO Q6H PRN cap 10/14/19 08/09/21 04/26/21 History aspirin 81 mg tablet,delayed 81 mg PO BEDTIME 10/14/19 08/09/21 04/26/21 History release cetirizine 10 mg tablet (Zyrtec) 10 mg PO BEDTIME 10/14/19 08/09/21 04/26/21 History cholecalciferol (vitamin D3) 50 50 mcg PO BEDTIME 10/14/19 08/09/21 04/26/21 History mcg (2,000 unit) capsule docusate sodium 100 mg capsule 300 mg PO BEDTIME 10/14/19 08/09/21 04/26/21 History (Stool Softener) pregabalin 75 mg capsule 75 mg PO BID #60 cap 04/12/21 08/09/21 04/26/21 Rx diphenhydramine 25 2 tab PO BEDTIME 04/13/21 08/09/21 04/26/21 History mg-acetaminophen 500 mg tablet (Tylenol PM Extra Strength) potassium gluconate 595 mg (99 mg) 595 mg PO BEDTIME 04/18/21 08/09/21 04/26/21 History tablet tramadol 50 mg tablet 50 mg PO BID PRN 90 Days #180 tab 04/24/21 08/09/21 04/26/21 Rx amlodipine 5 mg tablet See Rx Instructions .ROUTE 05/16/21 08/09/21 Unknown Rx .COMPLEX #90 tablet lisinopril 40 mg tablet See Rx Instructions .ROUTE 05/16/21 08/09/21 Unknown Rx .COMPLEX #90 tablet pravastatin 20 mg tablet See Rx Instructions .ROUTE 05/16/21 08/09/21 Unknown Rx .COMPLEX #90 tablet Allergies Allergy/AdvReac Type Severity Reaction Status Date / Time codeine Allergy loopy Verified 08/09/21 08:53 feeling [facility] Anesthesia Medical History COPD (chronic obstructive pulmonary disease) Esophageal stenosis GERD without esophagitis History of hepatitis C Hypercholesteremia Hypertension Osteoarthritis Surgical History H/O esophagogastroduodenoscopy (04/13/21) with balloon dilation 05/31/20: with dilation H/O tubal ligation History of colonoscopy 2018 History of thyroidectomy Family History Father Cancer lung Mother Cancer lung Brother Cancer lung Diabetes Sister Cancer breast, lung Denies family history of CAD (coronary artery disease) Anesthesia complication Bleeding disorder Social History Smoking and tobacco status: current every day smoker (1 pack per day ) cigarettes Smoking risk assessment/counseling performed?: Yes Alcohol intake: never Lives independently: Yes Household members: family Marital status: Single Current occupational status: retired History of recent travel: No Data Anesthesia Cardiac Studies: Echocardiogram 05/30/21
[2021-08-11 07:33] VITALS: BP 145/92; PULSE 82; RESP 18; TEMP 36.5; O2SAT 98
[2021-08-11] MEDS: sodium chloride 0.9% 1,000 ML 30 ML IV (07:49)
--- NOTE | 2021-08-11 07:55 | P.HP_ITS ---
Same Day Surgery H&P Indication for Procedure/HPI DATE OF PROCEDURE: August 11, 2021 CHIEF COMPLAINT/INDICATIONFOR SURGICAL PROCEDURE: screening PREOP DIAGNOSIS: diagnostic PLANNED PROCEDURE: Operation Date: 08/11/21 08:00 Proposed Procedures p Colonoscopy 48439 K22.2(Not Applicable) - Adrian Vizcarra MD Medications/Allergies* Home Medications Medication Instructions Recorded Confirmed Type acetaminophen 500 mg capsule 1,000 mg PO Q6H PRN cap 10/14/19 08/11/21 History aspirin 81 mg tablet,delayed 81 mg PO BEDTIME 10/14/19 08/11/21 History release cetirizine 10 mg tablet (Zyrtec) 10 mg PO BEDTIME 10/14/19 08/11/21 History cholecalciferol (vitamin D3) 50 50 mcg PO BEDTIME 10/14/19 08/11/21 History mcg (2,000 unit) capsule docusate sodium 100 mg capsule 300 mg PO BEDTIME 10/14/19 08/11/21 History (Stool Softener) diphenhydramine 25 2 tab PO BEDTIME 04/13/21 08/11/21 History mg-acetaminophen 500 mg tablet (Tylenol PM Extra Strength) potassium gluconate 595 mg (99 mg) 595 mg PO BEDTIME 04/18/21 08/11/21 History tablet Allergies/Adverse Reactions Allergy/AdvReac Type Severity Reaction Status Date / Time codeine Allergy loopy Verified 08/11/21 07:37 feeling Current Medications: Generic Name Dose Route Start Last Admin Trade Name Freq PRN Reason Stop Dose Admin Sodium Chloride 1,000 mls @ 30 mls/hr 08/11/21 07:15 08/11/21 07:49 Sodium Chloride 0.9% IV 08/12/21 07:14 30 mls/hr .Q24H NEGRITO Administration Pertinent History/Comorbid Conditions* Medical History (Updated 08/08/21 @ 13:53 by Kar Baker DO) COPD (chronic obstructive pulmonary disease) Esophageal stenosis GERD without esophagitis History of hepatitis C Hypercholesteremia Hypertension Osteoarthritis Surgical History (Updated 04/13/21 @ 09:04 by Adrian Vizcarra MD) H/O esophagogastroduodenoscopy (04/13/21) with balloon dilation 05/31/20: with dilation H/O tubal ligation History of colonoscopy 2018 History of thyroidectomy Family History (Updated 01/11/20 @ 13:50 by Greta Dimas LPN) Diabetes Brother Cancer Father lung Mother lung Brother lung Sister breast, lung Denies family history of CAD (coronary artery disease) Anesthesia complication Bleeding disorder Social History Smoking and tobacco status: current every day smoker (1 pack per day ) cigarettes Smoking risk assessment/counseling performed?: Yes Alcohol intake: never Lives independently: Yes Household members: family Marital status: Single Current occupational status: retired History of recent travel: No Pertinent Exam Findings alert, oriented x 3 and regular rate & rhythm Recommendations Surgery/Procedure today Coding Level of Care Code Acute Sole Stapler Welt for Genoveva Sanches
[2021-08-11 08:22] VITALS: BP 96/50; PULSE 60; RESP 16; TEMP 36.1; O2SAT 99
[2021-08-11 08:30] VITALS: BP 123/68; PULSE 66; RESP 18; O2SAT 96
--- NOTE | 2021-08-11 12:52 | ANE.PACU2 ---
Inpatient post-anesthesia follow up: Airway intact: Yes Vital signs: Temperature 97.0 F Pulse Rate 66 Respiratory Rate 18 Blood Pressure 123/68 Pulse Oximetry 96 Oxygen Delivery Me thod Room Air Oxygen Flow Rate Fraction of Inspir ed Oxygen Hydration adequate: Yes Nausea and vomiting: No Pain level: 1 Mental status: Baseline
== END 2021-08-11 08:53 | disposition home or self-care (01) ==
PROVIDERS: PCP Family Medicine; Visit Provider Surgery
PROC: 0DJD8ZZ Inspection of Lower Intestinal Tract, Via Natural or Artificial Opening Endoscopic (ICD-10-PCS; CPT 45378; principal; 2021-08-11 08:00)
DX: D50.9 Iron deficiency anemia, unspecified (principal); K22.2 Esophageal obstruction; D12.4 Benign neoplasm of descending colon; K57.30 Diverticulosis of large intestine without perforation or abscess without bleeding; J44.9 Chronic obstructive pulmonary disease, unspecified; Z86.19 Personal history of other infectious and parasitic diseases; E78.00 Pure hypercholesterolemia, unspecified; I10 Essential (primary) hypertension; M19.90 Unspecified osteoarthritis, unspecified site; Z83.3 Family history of diabetes mellitus; F17.210 Nicotine dependence, cigarettes, uncomplicated
CPT/HCPCS: 45385; 88305; J2704; J7030

== ENCOUNTER → 2021-08-14 09:45 | Outpatient (BNVA) | payer MEDICARE, SELFPAY | PROVIDERS: PCP Family Medicine; Visit Provider Anesthesiology Pain Medicine | DX: M48.062 Spinal stenosis, lumbar region with neurogenic claudication (principal); M47.816 Spondylosis without myelopathy or radiculopathy, lumbar region; M51.36 Other intervertebral disc degeneration, lumbar region; M43.16 Spondylolisthesis, lumbar region; M16.12 Unilateral primary osteoarthritis, left hip; M79.605 Pain in left leg; M16.2 Bilateral osteoarthritis resulting from hip dysplasia; F17.210 Nicotine dependence, cigarettes, uncomplicated; Z79.891 Long term (current) use of opiate analgesic | CPT/HCPCS: 99214 ==

== ENCOUNTER → 2021-08-23 13:56 | Outpatient (BNVA) | payer MEDICARE, SELFPAY | PROVIDERS: PCP Family Medicine; Visit Provider Anesthesiology Pain Medicine | DX: M51.16 Intervertebral disc disorders with radiculopathy, lumbar region (principal); M48.062 Spinal stenosis, lumbar region with neurogenic claudication; F17.210 Nicotine dependence, cigarettes, uncomplicated; Z79.891 Long term (current) use of opiate analgesic | CPT/HCPCS: 62323; J1040; J3490 ==

== ENCOUNTER → 2021-09-21 09:18 | Outpatient (BNVA) | payer MEDICARE, SELFPAY | PROVIDERS: PCP Family Medicine; Visit Provider Anesthesiology Pain Medicine | DX: M48.062 Spinal stenosis, lumbar region with neurogenic claudication (principal); M47.816 Spondylosis without myelopathy or radiculopathy, lumbar region; M51.36 Other intervertebral disc degeneration, lumbar region; M43.16 Spondylolisthesis, lumbar region; M16.12 Unilateral primary osteoarthritis, left hip; F17.210 Nicotine dependence, cigarettes, uncomplicated; Z79.891 Long term (current) use of opiate analgesic | CPT/HCPCS: 99214 ==

== ENCOUNTER → 2021-10-02 11:31 | Outpatient (BNVA) | payer MEDICARE, SELFPAY | PROVIDERS: PCP Family Medicine; Visit Provider Family Medicine | DX: D64.9 Anemia, unspecified (principal); E61.1 Iron deficiency; F17.210 Nicotine dependence, cigarettes, uncomplicated; Z68.30 Body mass index [BMI] 30.0-30.9, adult | CPT/HCPCS: 82728; 83540; 85025 ==

== ENCOUNTER → 2021-10-03 13:31 | Outpatient (BNVA) | payer MEDICARE, SELFPAY | PROVIDERS: PCP Family Medicine; Visit Provider Anesthesiology Pain Medicine | DX: M48.062 Spinal stenosis, lumbar region with neurogenic claudication (principal); F17.210 Nicotine dependence, cigarettes, uncomplicated; Z79.891 Long term (current) use of opiate analgesic; M54.16 Radiculopathy, lumbar region | CPT/HCPCS: 62323; J1030; J3490 ==

== ENCOUNTER → 2021-10-11 12:57 | Day surgery (SDC) | payer MEDICARE, SELFPAY ==
[2021-10-11 13:00] VITALS: BP 168/81; PULSE 88; RESP 18; TEMP 36.1; O2SAT 98
[2021-10-11] MEDS: ferric carboxy (IVPB) 750 MG in sodium chloride 0.9% (100 ml) 100 ML 345 MG IV (13:11)
== END ==
LOC: GILAB 13:01
PROVIDERS: PCP Family Medicine; Visit Provider Family Medicine
DX: D50.8 Other iron deficiency anemias (principal)
CPT/HCPCS: 96365; J1439

== ENCOUNTER → 2021-10-19 10:50 | Outpatient (BNVA) | payer MEDICARE, SELFPAY | PROVIDERS: PCP Family Medicine; Visit Provider Anesthesiology Pain Medicine | DX: M48.062 Spinal stenosis, lumbar region with neurogenic claudication (principal); M47.816 Spondylosis without myelopathy or radiculopathy, lumbar region; M51.36 Other intervertebral disc degeneration, lumbar region; M43.16 Spondylolisthesis, lumbar region; M16.12 Unilateral primary osteoarthritis, left hip; M79.605 Pain in left leg; F17.210 Nicotine dependence, cigarettes, uncomplicated; Z79.891 Long term (current) use of opiate analgesic | CPT/HCPCS: 99213 ==

== ENCOUNTER 2021-12-31 21:46 | Emergency (ER) | payer MEDICARE, SELFPAY ==
[2021-12-31 22:12] VITALS: BP 101/66; PULSE 92; RESP 16; TEMP 36.7; O2SAT 99
--- NOTE | 2021-12-31 23:21 | W.ED.GIBLEED ---
HPI - GI Bleed General: Chief complaint: Nausea/Vomiting/Diarrhea Stated complaint: Dark stool, SOB Time Seen by Provider: 12/31/21 22:33 Source: patient and family History of Present Illness: 71-year-old lady with a history of anemia. She notes that she has had dark-colored stool chronically for quite some time. She had an EGD and colonoscopy within the last several months. They both were nondiagnostic. She notes an increase in the amount of black stool she has been having recently. She is passing no clots and no blood. No vomiting. She has mild belly pain intermittently. She has felt weak the past few days. She gets short of breath and dizzy easily. She went to urgent care on Saturday, because her blood pressure seemed low to her, but was normal at urgent care so she was allowed home. She looks pale to her . complaint: melena Onset (ago): week(s) Pain Consistency: other Relieving factors: vomiting Exacerbating factors: none Context: history of GI bleed Associated symptoms: Reports abdominal pain (mild) and malaise; Denies fever(s), nausea, other bleeding, poor appetite or vomiting Review of Systems Const: Reports: malaise; Denies: fever(s) Card: Denies: chest pain Resp: Reports: dyspnea; Denies: productive cough or non-productive cough GI: Reports: abdominal pain (mild); Denies: nausea or vomiting [facility] ED PFSH: Medical History COPD (chronic obstructive pulmonary disease) Esophageal stenosis GERD without esophagitis History of hepatitis C Hypercholesteremia Hypertension Osteoarthritis Surgical History H/O esophagogastroduodenoscopy (04/13/21) with balloon dilation 05/31/20: with dilation H/O tubal ligation History of colonoscopy 2018 History of thyroidectomy Status post colonoscopy with polypectomy (08/11/21) Family History Father Cancer lung Mother Cancer lung Brother Cancer lung Diabetes Sister Cancer breast, lung Denies family history of CAD (coronary artery disease) Anesthesia complication Bleeding disorder Social History (Reviewed 01/02/22 @ 08:07 by MACARENA Gonzalez Smoking and tobacco status: current every day smoker cigarettes Smoking risk assessment/counseling performed?: Yes Alcohol intake: never Lives independently: Yes Household members: family Marital status: Single Current occupational status: retired History of recent travel: No Physical Exam Const: GENERAL APPEARANCE: cooperative and frail appearing (Mildly) HENMT: COMMON NORMALS: normocephalic, atraumatic and Normal external nose present HEAD & SCALP: normocephalic and atraumatic FACE & SINUS: facial exam not normal NOSE: Normal external nose present Eye: COMMON NORMALS: Equal, round and reactive pupils present and EOMs intact bilaterally PUPIL: Yes Equal, round and reactive pupils present Neck/C-Spine: GENERAL: Yes trachea midline Chest: COMMONS NORMALS: normal inspection of the chest Resp: COMMON NORMALS: normal respiratory effort, No use of accessory muscles and clear to auscultation bilaterally AUSCULTATION: clear to auscultation bilaterally Cardio: COMMON NORMALS: regular rate and regular rhythm RATE: regular rate RHYTHM: regular rhythm GI: COMMON NORMALS: Normal to inspection, nondistended, normoactive bowel sounds present, Soft to palpation and non-tender PALPATION: Yes Soft to palpation Neuro: ISIDRO COMA SCALE: document GCS findings Isidro coma scale eye opening: Spontaneous Isidro coma scale verbal response: Orientated Isidro coma scale motor response: [place] commands [place] coma scale total score: 15 Psych: COMMON NORMALS: cooperative Skin: GENERAL SKIN EXAM: pallor Course Vital Signs: Vital signs: Vital Signs Temperature 98.1 F 01/01/22 07:08 Pulse Rate 88 01/01/22 07:08 Respiratory Rate 18 01/01/22 07:08 Blood Pressure 122/57 01/01/22 07:08 Pulse Oximetry 97 01/01/22 07:08 MDM - GI Bleed Medical Decision Making Patient is hemodynamically stable. She is quite pale. Her hemoglobin is 5.5 her BUN is 66 with a creatinine of 1.6. This is obviously an occult GI bleed. She has had a negative EGD recently. She is also had a negative colonoscopy. The next step would be a capsule endoscopy. She is crossmatched and transfused 2 units of packed cells here. She was given the option of admission, but wishes to go home posttransfusion, as this is a more chronic problem for her. Outpatient follow-up for repeat hemoglobin hematocrit testing was encouraged. Case management will work on getting her an appointment early this week with her PCP. She tolerated the transfusion without complication. Lab Data : 01/01/22 06:58 12/31/21 23:15 Laboratory Results WBC 7.3 10^3/uL (4.0-10.0) 12/31/21 23:15 RBC 1.87 10^6/uL (4.1-5.3) L 12/31/21 23:15 Hgb 8.2 g/dL (11.5-15.3) L D 01/01/22 06:58 Hct 16.8 % (37.0-47.0) L* 12/31/21 23:15 MCV 89.8 fl (81-99) 12/31/21 23:15 MCH 29.4 pg (28.0-34.0) 12/31/21 23:15 MCHC 32.7 g/dL (30.0-36.0) 12/31/21 23:15 RDW 16.8 % (12.1-15.1) H 12/31/21 23:15 Plt Count 160 10^3/cmm (130-400) 12/31/21 23:15 MPV 9.6 fL (7.4-10.4) 12/31/21 23:15 Neut % (Auto) 76.7 % 12/31/21 23:15 Lymph % (Auto) 16.9 % 12/31/21 23:15 [place] % (Auto) 5.0 % 12/31/21 23:15 Eos % (Auto) 0.6 % 12/31/21 23:15 Baso % (Auto) 0.4 % 12/31/21 23:15 Neut # (Auto) 5.58 10^3/uL (1.8-7.7) 12/31/21 23:15 Lymph # (Auto) 1.2 10^3/uL (0.8-4.8) 12/31/21 23:15 [place] # (Auto) 0.4 10^3/uL (0.2-0.9) 12/31/21 23:15 Eos # (Auto) 0.0 10^3/uL (0.0-0.8) 12/31/21 23:15 Baso # (Auto) 0.0 10^3/uL (0.0-0.1) 12/31/21 23:15 Nucleated RBC % (auto) 0 % 12/31/21 23:15 Nucleated RBCs # 0.0 /100WBC 12/31/21 23:15 PT 13.90 SECONDS (12.1-14.9) 12/31/21 23:15 INR 1.04 (0.8-1.2) 12/31/21 23:15 APTT 26.5 SECONDS (23.9-36.7) 12/31/21 23:15 Sodium 136 mmol/L (136-145) 12/31/21 23:15 Potassium 4.7 mmol/L (3.5-5.1) 12/31/21 23:15 Chloride 102 mmol/L (98-107) 12/31/21 23:15 Carbon Dioxide 21 mmol/L (22-29) L 12/31/21 23:15 Anion Gap 17.7 (5-19) 12/31/21 23:15 BUN 66 mg/dL (8-23) H 12/31/21 23:15 Creatinine 1.6 mg/dL (0.5-0.9) H 12/31/21 23:15 GFR Calculation Not Reportable 12/31/21 23:15 Glucose 106 mg/dL (65-115) 12/31/21 23:15 Calculated Osmolality 301 mOsm/kg (285-295) H 12/31/21 23:15 Calcium 8.9 mg/dL (8.5-10.5) 12/31/21 23:15 Ferritin 23 ng/mL (15-150) 12/31/21 23:15 Total Bilirubin 0.2 mg/dL (0.15-1.2) 12/31/21 23:15 AST 8 U/L (0-32) 12/31/21 23:15 ALT 6 U/L (0-33) 12/31/21 23:15 Alkaline Phosphatase 46 IU/L (35-105) 12/31/21 23:15 Total Protein 6.6 g/dL (6.6-8.7) 12/31/21 23:15 Albumin 3.9 g/dL (3.5-5.2) 12/31/21 23:15 Globulin 2.7 g/dL (1.3-4.6) 12/31/21 23:15 Lipase 12 U/L (13-60) L 12/31/21 23:15 Blood Type O Positive 12/31/21 23:15 Rho(D) Type Positive 12/31/21 23:15 Antibody Screen Negative 12/31/21 23:15 Crossmatch See Detail 12/31/21 23:15 Discharge Plan Discharge Patient Disposition: Home Clinical Impression: Anemia, Chronic GI bleeding Condition: Stable Prescriptions: No Action cholecalciferol (vitamin D3) 50 mcg (2,000 unit) capsule 50 mcg PO BEDTIME 0RF aspirin 81 mg tablet,delayed release (DR/EC) 81 mg PO BEDTIME 0RF cetirizine [Zyrtec] 10 mg tablet 10 mg PO BEDTIME 0RF docusate sodium [Stool Softener] 100 mg capsule 300 mg PO BEDTIME 0RF acetaminophen 500 mg capsule 1,000 mg PO Q6H PRN (Reason: Pain) 0RF hydrochlorothiazide 25 mg tablet 25 mg PO DAILY Qty: 30 0RF pregabalin 75 mg capsule 75 mg PO BID Qty: 60 5RF tramadol 50 mg tablet 50 mg PO BID PRN (Reason: pain) 90 Days Qty: 180 1RF diphenhydramine-acetaminophen [Tylenol PM Extra Strength] 25-500 mg Tablet 2 tab PO BEDTIME 0RF potassium gluconate 595 mg (99 mg) Tablet 595 mg PO BEDTIME 0RF amlodipine 5 mg tablet 5 mg PO DAILY 0RF Rx Instructions: TAKE 1 TABLET BY MOUTH EVERY DAY pravastatin 20 mg tablet 20 mg PO DAILY 0RF Rx Instructions: TAKE 1 TABLET BY MOUTH EVERY DAY lisinopril 40 mg tablet 40 mg PO DAILY 0RF Rx Instructions: TAKE 1 TABLET BY MOUTH EVERY DAY Discharge Orders: Discharge ED (Routine); Ordered 01/01/22 Ordered By: Moose Padilla Referrals: Raciel Quinteros MD [Primary Care Provider] - 1-3 days Patient Instructions: Gastrointestinal Bleeding (ED), Anemia (ED), Opioid Safety Activity Restrictions/Additional Instructions: You should see your doctor in a couple of days, and you will require repeat blood count testing. Case management is working on getting you an appointment. Return for feelings of weakness, shortness of breath, chest discomfort, abdominal pain, fever, any other concerning symptoms. Return also for more brisk bleeding with passage of any clots. Coding Level of Care Code ED Supervisor Assembly for Chg Fwd Exam Comprehensive
[2021-12-31 23:29] LABS: Basophils % 0.4 %; Eosinophils % 0.6 %; Lymphocytes # 1.2 10^3/uL (0.8-4.8); Lymphocytes % 16.9 %; Mean Corpuscular HGB Conc 32.7 g/dL (30.0-36.0); Mean Corpuscular Hemoglobin 29.4 pg (28.0-34.0); Mean Corpuscular Volume 89.8 fl (81-99); Mean Platelet Volume 9.6 fL (7.4-10.4); Monocytes # 0.4 10^3/uL (0.2-0.9); Neutrophils # 5.58 10^3/uL (1.8-7.7); Neutrophils % 76.7 %; Nucleated Red Blood Cells % 0 %; Platelet Count 160 10^3/cmm (130-400); Red Blood Count 1.87 10^6/uL (4.1-5.3); Red Cell Distribution Width 16.8 % (12.1-15.1); White Blood Count 7.3 10^3/uL (4.0-10.0)
[2021-12-31 23:33] LABS: Hematocrit 16.8 % (37.0-47.0); Hemoglobin 5.5 g/dL (11.5-15.3)
[2021-12-31 23:42] LABS: INR 1.04 (0.8-1.2); Partial Thromboplastin Time 26.5 SECONDS (23.9-36.7)
[2021-12-31 23:49] LABS: Alanine Aminotransferase 6 U/L (0-33); Albumin Level 3.9 g/dL (3.5-5.2); Alkaline Phosphatase 46 IU/L (35-105); Anion Gap 17.7 (5-19); Aspartate Amino Transferase 8 U/L (0-32); Blood Urea Nitrogen 66 mg/dL (8-23); Calcium 8.9 mg/dL (8.5-10.5); Carbon Dioxide 21 mmol/L (22-29); Chloride 102 mmol/L (98-107); Globulin 2.7 g/dL (1.3-4.6); Glucose 106 mg/dL (65-115); Lipase 12 U/L (13-60); Osmolality Calculated 301 mOsm/kg (285-295); Potassium 4.7 mmol/L (3.5-5.1); Sodium 136 mmol/L (136-145); Total Bilirubin 0.2 mg/dL (0.15-1.2); Total Protein 6.6 g/dL (6.6-8.7)
[2022-01-01] VITALS (9 sets, daily range): BP systolic 88–125; BP diastolic 49–69; PULSE 85–94; RESP 15–18; TEMP 36.7–36.9; O2SAT 96–99
[2022-01-01] MEDS: sodium chloride 0.9% 1,000 ML 999 ML IV
[2022-01-01 00:28] LABS: Ferritin 23 ng/mL (15-150)
[2022-01-01] MEDS: acetaminophen 325 mg Tablet 650 MG PO (01:01)
[2022-01-01] MEDS: diphenhydrAMINE 50 mg/mL SDV 1mL 12.5 MG IVP (01:01)
[2022-01-01] MEDS: sodium chloride 0.9% 100 mL Bag 50 ML IV (01:01)
--- NOTE | 2022-01-01 01:19 | PC.NURSE ---
0110- patient in no obivous distress upon start of blood products. patient denies complaints at this time. patient given warm blankets for comfort. Blood transfusion started and verifed 2nd RN per Ladonna Navarro Rn
--- NOTE | 2022-01-01 04:25 | PC.NURSE ---
0344- patient in no obivous distress. blood verified with Ladonna Ceron at bedside. Blood began at 75 ml/hr.
[2022-01-01 07:11] LABS: Hemoglobin 8.2 g/dL (11.5-15.3)
--- NOTE | 2022-01-01 08:29 | DCPLANNER ---
Addendum entered by Gay De La Torre 03/06/22 16:53: Patient had a follow up appointment scheduled with [facility] Family Medicine appointment was rescheduled. Original Note: television station manager had message to schedule a follow up appointment for patient with primary care, Dr. Quinteros. television station manager called [facility] Medicine. television station manager spoke with Monalisa, gave clinic patients information. A follow up appointment is scheduled for Sunday, January 02, 2022 at 10:[address] Quinteros, patient is aware of appointment.
== END 2022-01-01 07:10 | disposition home or self-care (01) ==
PROVIDERS: Emergency Provider Emergency Medicine; PCP Family Medicine
DX: K92.2 Gastrointestinal hemorrhage, unspecified (principal); D64.9 Anemia, unspecified; Z79.82 Long term (current) use of aspirin; J44.9 Chronic obstructive pulmonary disease, unspecified; Z86.19 Personal history of other infectious and parasitic diseases; I10 Essential (primary) hypertension; F17.210 Nicotine dependence, cigarettes, uncomplicated
CPT/HCPCS: 36430; 80053; 82728; 83690; 85018; 85025; 85610; 85730; 86850; 86900; 86920; 96361; 96374; 99284; J1200; J7030; P9016

== ENCOUNTER → 2022-01-02 11:36 | Outpatient (BNVA) | payer MEDICARE, SELFPAY | PROVIDERS: PCP Family Medicine; Visit Provider Family Medicine | DX: D64.9 Anemia, unspecified (principal); I10 Essential (primary) hypertension | CPT/HCPCS: 80048; 85018 ==

== ENCOUNTER 2022-01-12 08:42 | Oncology outpatient (recurring) (ONCR) | payer MEDICARE, SELFPAY ==
[2022-01-12 11:06] LABS: Basophils # 0.1 10^3/uL (0.0-0.1); Basophils % 1.1 %; Eosinophils # 0.1 10^3/uL (0.0-0.8); Eosinophils % 2.2 %; Hematocrit 28.6 % (37.0-47.0); Hemoglobin 9.1 g/dL (11.5-15.3); Lymphocytes # 1.1 10^3/uL (0.8-4.8); Mean Corpuscular HGB Conc 31.8 g/dL (30.0-36.0); Mean Corpuscular Hemoglobin 29.6 pg (28.0-34.0); Mean Corpuscular Volume 93.2 fl (81-99); Mean Platelet Volume 9.3 fL (7.4-10.4); Monocytes # 0.4 10^3/uL (0.2-0.9); Monocytes % 7.8 %; Neutrophils # 2.88 10^3/uL (1.8-7.7); Neutrophils % 64.7 %; Nucleated Red Blood Cells % 0 %; Platelet Count 207 10^3/cmm (130-400); Red Blood Count 3.07 10^6/uL (4.1-5.3); Red Cell Distribution Width 15.1 % (12.1-15.1); White Blood Count 4.5 10^3/uL (4.0-10.0)
[2022-01-12 11:26] LABS: Iron 45 ug/dL (37-145); Percent Saturation 16.2 % (20-50); Total Iron Binding Capacity 277 mcg/dl; Unsaturated Iron Binding 232 ug/dL (112-347)
== END 2022-01-12 23:59 | disposition home or self-care (01) ==
PROVIDERS: PCP Family Medicine; Visit Provider Internal Medicine Medical Oncology
DX: D50.8 Other iron deficiency anemias (principal)
CPT/HCPCS: 36415; 83540; 83550; 85025; 86850; 86900; 99204; G0328

== ENCOUNTER → 2022-01-24 09:40 | Outpatient (BNVA) | payer MEDICARE, SELFPAY | PROVIDERS: PCP Family Medicine; Visit Provider Anesthesiology Pain Medicine | DX: M48.062 Spinal stenosis, lumbar region with neurogenic claudication (principal); M47.816 Spondylosis without myelopathy or radiculopathy, lumbar region; M51.36 Other intervertebral disc degeneration, lumbar region; M43.16 Spondylolisthesis, lumbar region; M16.12 Unilateral primary osteoarthritis, left hip; M79.605 Pain in left leg; F17.210 Nicotine dependence, cigarettes, uncomplicated; Z79.891 Long term (current) use of opiate analgesic | CPT/HCPCS: 99214 ==

== ENCOUNTER → 2022-02-12 14:08 | Outpatient (BNVA) | payer MEDICARE, SELFPAY | PROVIDERS: PCP Family Medicine; Visit Provider Anesthesiology Pain Medicine | DX: F17.210 Nicotine dependence, cigarettes, uncomplicated (principal); Z79.891 Long term (current) use of opiate analgesic; M47.816 Spondylosis without myelopathy or radiculopathy, lumbar region; M48.062 Spinal stenosis, lumbar region with neurogenic claudication | CPT/HCPCS: 64493; 64494; 64495; J3490 ==

== ENCOUNTER → 2022-02-20 09:56 | Outpatient (BNVA) | payer MEDICARE, SELFPAY | PROVIDERS: PCP Family Medicine; Visit Provider Surgery | DX: D50.8 Other iron deficiency anemias (principal) | CPT/HCPCS: 99203 ==

== ENCOUNTER → 2022-02-26 13:21 | Outpatient (BNVA) | payer MEDICARE, SELFPAY | PROVIDERS: PCP Family Medicine; Visit Provider Anesthesiology Pain Medicine | DX: F17.210 Nicotine dependence, cigarettes, uncomplicated (principal); Z79.891 Long term (current) use of opiate analgesic; M47.816 Spondylosis without myelopathy or radiculopathy, lumbar region; M48.062 Spinal stenosis, lumbar region with neurogenic claudication | CPT/HCPCS: 64493; 64494; 64495; J3490 ==

== ENCOUNTER → 2022-03-26 11:18 | Outpatient (BNVA) | payer MEDICARE, SELFPAY | PROVIDERS: PCP Family Medicine; Visit Provider Anesthesiology Pain Medicine | DX: M48.062 Spinal stenosis, lumbar region with neurogenic claudication (principal); M47.816 Spondylosis without myelopathy or radiculopathy, lumbar region; M51.36 Other intervertebral disc degeneration, lumbar region; M43.16 Spondylolisthesis, lumbar region; M16.12 Unilateral primary osteoarthritis, left hip; F17.210 Nicotine dependence, cigarettes, uncomplicated | CPT/HCPCS: 99214 ==

== ENCOUNTER → 2022-03-29 14:21 | Outpatient (BNVA) | payer MEDICARE, SELFPAY | PROVIDERS: PCP Family Medicine; Visit Provider Orthopaedic Surgery | DX: M48.062 Spinal stenosis, lumbar region with neurogenic claudication (principal) | CPT/HCPCS: 99214 ==

== ENCOUNTER 2022-04-09 06:00 | Outpatient (CLI) | payer MEDICARE, SELFPAY | END 2022-04-09 06:01 | disposition home or self-care (01) | LOC: RT 04-12 11:41 | PROVIDERS: PCP Family Medicine; Visit Provider Orthopaedic Surgery | DX: Z01.89 Encounter for other specified special examinations (principal) | CPT/HCPCS: 93005 ==

== ENCOUNTER 2022-04-16 08:20 | Day surgery (SDC) | payer MEDICARE, SELFPAY ==
--- NOTE | 2022-04-09 10:21 | ECG_ITS ---
[facility] Test Date: 2022-04-09 Pat Name: Shikha Osei Department: Room: Gender: Female Embedded Processor: : 1950 Requested By: Amadou Bob Order Number: [id number] Devin MD: Reagan Dent M.D. Measurements Intervals [place] Rate: 62 P: 50 [place]: 175 QRS: -3 QRSD: 85 T: -5 QT: 430 QTc: 440 Interpretive Statements SINUS RHYTHM MINIMAL VOLTAGE CRITERIA FOR LVH, CONSIDER NORMAL VARIANT [MEETS CRITERIA IN ONE OF: R(aVL), S(V1), R(V5), R(V5/V6)+S(V1)] NONSPECIFIC T-WAVE ABNORMALITY No previous ECG available for comparison Electronically Signed On 04-10-2022 0:23:27 CDT by Reagan Dent M.D. [id number]
[2022-04-09 10:35] LABS: Anion Gap 12.4 (5-19); Blood Urea Nitrogen 24 mg/dL (8-23); Calcium 9.4 mg/dL (8.5-10.5); Carbon Dioxide 27 mmol/L (22-29); Chloride 104 mmol/L (98-107); Glucose 88 mg/dL (65-115); Osmolality Calculated 291 mOsm/kg (285-295); Potassium 4.4 mmol/L (3.5-5.1); Sodium 139 mmol/L (136-145)
--- NOTE | 2022-04-09 13:07 | P.ANESASSM_ITS ---
Pre-Anesthetic Assessment Height/Weight: Height 1.6 m Preop Diagnosis: Lumbar stenosis with neurogenic claudication Operation Date: 04/16/22 12:40 Proposed Procedures p Lumbar Spine Decompression L3/4 L4/5 94430/31950/M48.062(Not Applicable) - Kar Baker DO Familial anesthetic complications: none Was Beta Maddison taken within 24 hours: N/A Was Clonidine taken within 24 hours: N/A Social Tobacco and No alcohol Exam alert, oriented x 3 and regular rate & rhythm Airway Submandibular: within normal limits Cervical ROM: within normal limits Mallampati: Class II Dentition: chipped Comments: Comments: Very poor dentition Pulmonary Chronic Obstructive Pulmonary Disease CV/HEM Anemia, Hypertension and Murmur CONCLUSIONS ?Normal left ventricular size and systolic function, EF 65 %. No ?regional wall motion abnormalities. Mild left ventricular ?hypertrophy. Grade I/IV diastolic dysfunction (abnormal ?relaxation filling pattern), normal to mildly elevated filling ?pressures. ?Mildly increased left atrial size. ?Moderate mitral annular calcification. ?Mildly thickened mitral valve. ?Trace tricuspid valveTrace pulmonary valve regurgitation. ? regurgitation.? ?Estimated pulmonary artery peak systolic pressure 30 mm of Hg. ?Mild mitral valve regurgitation. ? Thickened aortic valve. ?There is no pericardial effusion. ?There are no intracardiac masses. ?No previous study is available for comparison. Hepatic Hepatitis (C) Metabolic Hyperlipidemia and Morbid Obesity Anesthetic Plan ASA status: 3 Anesthesia: General Medications/Allergies Home Medications Medication Instructions Recorded Confirmed Last Taken Type acetaminophen 500 mg capsule 1,000 mg PO Q6H PRN Pain 10/14/19 04/09/22 10/11/21 History aspirin 81 mg tablet,delayed 81 mg PO BEDTIME 10/14/19 04/09/22 10/11/21 History release cetirizine 10 mg tablet (Zyrtec) 10 mg PO BEDTIME 10/14/19 04/09/22 10/11/21 History cholecalciferol (vitamin D3) 50 50 mcg PO BEDTIME 10/14/19 04/09/22 10/11/21 History mcg (2,000 unit) capsule docusate sodium 100 mg capsule 300 mg PO BEDTIME 10/14/19 04/09/22 10/11/21 History (Stool Softener) diphenhydramine 25 2 tab PO BEDTIME 04/13/21 04/09/22 10/11/21 History mg-acetaminophen 500 mg tablet (Tylenol PM Extra Strength) potassium gluconate 595 mg (99 mg) 595 mg PO BEDTIME 04/18/21 04/09/22 10/11/21 History tablet pregabalin 75 mg capsule 75 mg PO BID #60 caps 11/27/21 04/09/22 Unknown Rx tramadol 50 mg tablet 50 mg PO BID PRN pain 90 days #180 11/27/21 04/09/22 Unknown Rx tabs amlodipine 5 mg tablet See Rx Instructions .Route 02/08/22 04/09/22 Unknown Rx .COMPLEX #90 tabs lisinopril 40 mg tablet See Rx Instructions .Route 02/08/22 04/09/22 Unknown Rx .COMPLEX #90 tabs pravastatin 20 mg tablet See Rx Instructions .Route 02/08/22 04/09/22 Unknown Rx .COMPLEX #90 tabs ascorbic acid (vitamin C) 500 mg PO BID 04/09/22 04/09/22 Unknown History ferrous sulfate 325 mg (65 mg 325 mg PO DAILY 04/09/22 04/09/22 Unknown History iron) tablet (iron) zinc 50 mg capsule 50 mg PO DAILY 04/09/22 04/09/22 Unknown History Allergies Allergy/AdvReac Type Severity Reaction Status Date / Time codeine Allergy loopy Verified 04/09/22 09:51 feeling [facility] Anesthesia Medical History COPD (chronic obstructive pulmonary disease) Degenerative joint disease of spine Esophageal stenosis GERD (gastroesophageal reflux disease) History of hepatitis C Hypercholesteremia Hypertension Osteoarthritis Surgical History H/O esophagogastroduodenoscopy with balloon dilation on 05/31/2020 and on 04/13/2021 05/31/20: with dilation H/O tubal ligation History of colonoscopy (08/11/21) History of thyroidectomy (1993) Hemithyroidectomy Status post colonoscopy with polypectomy (08/11/21) Family History Father Cancer lung Mother Cancer lung Brother Cancer lung Diabetes Sister Cancer breast, lung Denies family history of CAD (coronary artery disease) Anesthesia complication Bleeding disorder Social History Smoking and tobacco status: current every day smoker cigarettes Smoking risk assessment/counseling performed?: Yes Alcohol intake: never Lives independently: Yes Household members: family Marital status: Single Current occupational status: retired History of recent travel: No Data Anesthesia : 04/09/22 10:05 BMP 04/09/22 10:05 Sodium 139 Potassium 4.4 Chloride 104 Carbon Dioxide 27 BUN 24 H Creatinine 1.0 H Glucose 88 Calcium 9.4 Cardiac Studies: Echocardiogram 05/30/21
[2022-04-16] VITALS (12 sets, daily range): BP systolic 90–150; BP diastolic 48–92; PULSE 67–96; RESP 14–20; TEMP 36.1–36.6; O2SAT 94–100
--- NOTE | 2022-04-16 | XR_ITS ---
WS: [id number] XR lumbar spine 1V [id number] REASON FOR EXAM: Left sided L3-L4; L4-L5 FINDINGS: Probe followed by surgical device overlying the left L4-L5 interspace. XR/XR lumbar spine 1V [id number] IMPRESSION: Lumbar spine localization in surgery as above.
--- NOTE | 2022-04-16 | SCC_ITS ---
Procedure done: 1. L3/4 Laminectomy with partial facetectomies 2. L4/5 laminectomies with partial facetectomies 16.3 seconds of fluoroscopic guidance, for a cumulative dose of 5.85 mGy, was provided to Dr. Baker by the radiology department. C-arm images of the lumbar spine were saved for the patient's permanent record. [facility]
--- NOTE | 2022-04-16 07:30 | P.ANESUD_ITS ---
Pre-Anesthetic Update Pre-Anesthetic Assessment: Date of Surgery/Procedure: 04/16/22 Preop Renate gnosis: Lumbar stenosis with neurogenic claudication Proposed Procedure: Operation Date: 04/16/22 09:50 Proposed Procedures p Lumbar Spine Decompression L3/4 L4/5 34929/77999/M48.062(Not Applicable) - Kar Baker, DO Any changes to Pre-Anesthetic Assessment?: No Last Intake: 04/15/22 Exam: Pre-Anes Outpt Exam: alert, oriented x 3, clear to auscultation bilaterally and regular rate & rhythm Cardiac Studies: Echocardiogram 05/30/21
--- NOTE | 2022-04-16 08:32 | W.PM.OPSUD ---
Surgery/Procedure H&P Update DATE OF PROCEDURE: April 16, 2022 DATE H&P PERFORMED: 03/29/22 H&P UPDATE INFORMATION: I have reviewed H&P completed within last 30 days, I have examined patient prior to procedure and No changes to prior documentation PREOP DIAGNOSIS: Lumbar stenosis with neurogenic claudication PLANNED PROCEDURE: Operation Date: 04/16/22 09:50 Proposed Procedures p Lumbar Spine Decompression L3/4 L4/5 87621/39910/M48.062(Not Applicable) - Kar Baker DO
[2022-04-16] MEDS: sodium chloride 0.9% 1,000 ML 30 ML IV (09:07)
[2022-04-16] MEDS: ceFAZolin 2,000 MG in sodium chloride 0.9% (plus) 50 ML 100 MG IV (09:23)
--- NOTE | 2022-04-16 10:43 | SUR.PHASEI ---
10:35 RECEIVED PATIENT FROM OR STAFF. RESPONDS TO VERBAL. OCCASIONAL COUGH. NSR ON MONITOR. ROM AND SENSATION ALL 4 EXTREMITIES. VENTILATING WELL. FAINT WHEEZES NOTED.
[2022-04-16] MEDS: ipratropium-albuterol 3 mL Neb INHALATION (10:55)
--- NOTE | 2022-04-16 10:55 | P.OP_ITS ---
Operative Report Date of procedure: April 16, 2022 Pre-op diagnosis: Preop Diagnosis Lumbar stenosis with neurogenic claudication Post-op diagnosis: same Procedure done: 1. L3/4 Laminectomy with partial facetectomies 2. L4/5 laminectomies with partial facetectomies Surgeon: Kar Baker Livery Car Driver: Leonardo Torres Estimated blood loss (mL): 5 Procedure: 1. L3/4 Laminectomy with partial facetectomies 2. L4/5 laminectomies with partial facetectomies Patient is brought to the operative suite. After undergoing anesthesia they are placed in the prone position. All areas of impingement are well padded. Patient is then prepped and draped in the normal sterile fashion. A skin incision is made over the L4/5 level. This is confirmed under c-arm guidance. A series of dilators are passed and the tubular retractor is docked on the L 4 lamina. A bovie is used to clear the soft tissue off the lamina and the L 4/5 facet joint. A high speed miguel is then used to perform the laminecto my and take down the medial aspect of the L 4/5 facet joint. A kerrison rongeure was then used to take down the remaining lamina and smooth the edged of the laminectomy up to the point where the ligamentum flavum attaches. Attention was then brought to the medial aspect of the facet joint. The remaining medial aspect of the superior and inferior aspect of the facet joint were taken down with the kerrison from the pedicle of L 4 to L 5. The facet joint had significant hypertrophy. Attention was then brought to the Ligamentum Flavum. The ligament was taken down from the lamina of L 4 to L5 and out medially to the remaining facet joint. The ligament was thick. The dura was then exposed. The dura was in good repair. The L4 nerve was then traced with a curette out the L4/5 foramen and found to be adequately decompressed. The L5 nerve was traced with a curette around the L5 pedicle. The lateral recess was opened with a kerrison helping to further decompress the L5 nerve. The tubular retractor was then tilted to the contralateral side. The bovie was used to take down the soft tissue on the spinous process. The high speed miguel was used to take down the spinous process and then the contralateral lamina of L4. The kerrison rongeur was used to take down the remaining lamina to the point where the ligamentum flavum attached and the ligamentum flavum was taken down from L4 to L5. The kerrison rongeur was then used to reach across and take down the medial aspect of the contralateral L4/5 facet joint.The currete was used to trace the contralateral L4 nerve out the L4/5 foramen to make sure it was decompressed adequatesly and the L5 was traced around the L5 pedicle. The lateral recess was opened further with the kerrison to ensure the L5 is adequately decompressed. Wound is then irrigated copiously with saline and surgiflo is used to stop any bleeding. The tubular retractor is removed A skin incision is made over the L3/4 level. This is confirmed under c-arm guid ance. A series of dilators are passed and the tubular retractor is docked on the L3 lamina. A bovie is used to clear the soft tissue off the lamina and the L 3/4 facet joint. A high speed miguel is then used to perform the laminectomy and take down the medial aspect of the L 3/4 facet joint. A kerrison rongeure was then used to take down the remaining lamina and smooth the edged of the laminectomy up to the point where the ligamentum flavum attaches. Attention was then brought to the medial aspect of the facet joint. The remaining medial aspect of the superior and inferior aspect of the facet joint were taken down with the kerrison from the pedicle of L3 to L 4. The facet joint had significant hypertrophy. Attention was then brought to the Ligamentum Flavum. The ligament was taken kirit n from the lamina of L3 to L4 and out medially to the remaining facet joint. The ligament was thick. The dura was then exposed. The dura was in good repair. The L3 nerve was then traced with a curette out the L3/4 foramen and found to be adequately decompressed. The L4 nerve was traced with a curette around the L4 pedicle. The lateral recess was opened with a kerrison helping to further deco mpress the L4 nerve. The tubular retractor was then tilted to the contralateral side. The bovie was used to take down the soft tissue on the spinous process. The high speed miguel was used to take down the spinous process and then the contralateral lamina of L3. The kerrison rongeur was used to take down the remaining lamina to the point where the ligamentum flavum attached and the ligamentum flavum was taken down from L3 to L4. The kerrison rongeur was then used to reach across and take down the medial aspect of the contralateral L3/4 facet joint.The currete was used to trace the contralateral L3 nerve out the L3/4 foramen to make sure it was decompressed adequatesly and the L4 was traced around the L4 pedicle. The lateral recess was opened further with the kerrison to ensure the L4 is adequately decompressed. Wound is then irrigated copiously with saline and surgiflo is used to stop any bleeding. The tubular retractor is removed and the wound is closed with vicryl and monocryl suture. Glue is then used to protect the wound. A sterile dressing is then placed. Patient was then placed in the supine position and transferred to the PACU in stable condition.
--- NOTE | 2022-04-16 10:55 | SUR.PHASEI ---
10:53 BREATHING TREATMENT GIVEN FOR WHEEZES.
[2022-04-16] MEDS: fentaNYL 50 mcg/mL INJ 2mL IVP (11:05)
--- NOTE | 2022-04-16 11:12 | SUR.PHASEI ---
11:05 MEDICATED FOR BACK PAIN. VENTILATING WELL. LESS CONGESTION NOTED. 11:10. MODERATE RELIEF OF BACK PAIN.
[2022-04-16] MEDS: HYDROcodone-acetaminophen 5-325 mg Tablet 1 TAB PO (11:58)
--- NOTE | 2022-04-16 12:49 | ANE.PACU2 ---
Inpatient post-anesthesia follow up: Airway intact: Yes Vital signs: Temperature 97.8 F Pulse Rate 73 Respiratory Rate 18 Blood Pressure 101/54 Pulse Oximetry 94 Oxygen Delivery Me thod Room Air Oxygen Flow Rate 8 Fraction of Inspir ed Oxygen Hydration adequate: Yes Nausea and vomiting: No Pain level: 1 Mental status: Baseline
== END 2022-04-16 12:38 | disposition home or self-care (01) ==
PROVIDERS: Anesthesiology; PCP Family Medicine; Visit Provider Orthopaedic Surgery
PROC: (CPT 63005; principal; 2022-04-16 09:40)
DX: M48.062 Spinal stenosis, lumbar region with neurogenic claudication (principal); J44.9 Chronic obstructive pulmonary disease, unspecified; I10 Essential (primary) hypertension; Z86.19 Personal history of other infectious and parasitic diseases; K21.9 Gastro-esophageal reflux disease without esophagitis; E78.00 Pure hypercholesterolemia, unspecified; M19.90 Unspecified osteoarthritis, unspecified site; F17.210 Nicotine dependence, cigarettes, uncomplicated
CPT/HCPCS: 63047; 63048; 36415; 72020; 76000; 80048; J0330; J1100; J2405; J2704; J2710; J3010; J3490; J7030

== ENCOUNTER 2022-04-23 09:20 | Outpatient (CLI) | payer MEDICARE, SELFPAY ==
--- NOTE | 2022-04-23 09:30 | FL_ITS ---
WS: [id number] SMALL BOWEL EXAMINATION CLINICAL INFORMATION: ANEMIA, IRON DEFICIENCY COMPARISON: None. FINDINGS: Initial abdomen radiograph: Mild lumbar curve convex LEFT. Moderate spondylitic changes lumbar spine. Osteopenia. Vascular calcification. Pelvic phleboliths. Degenerative arthritis sacroiliac joints. Ad vanced degenerative arthritis LEFT hip. Moderate degenerative arthritis RIGHT hip. Contrast material: 50/50 thin barium sulfate suspension. Transit time: 75 Minutes (normal = 30 - 240 minutes) Mild esophageal reflux with small esophageal hiatal hernia visualized on the supine imaging. No small bowel stricture, dilatation, adhesion, or mass. The terminal ileum is normal. Normal transit time. N o evidence of small bowel obstruction. Normal duodenum and jejunum. FLUOROSCOPY TIME: 1min 12.437951mcm minutes. # of spot films: 5. FL/FL small bowel series* [id number] IMPRESSION: 1. Normal small bowel study. 2. Mild esophageal reflux with small esophageal hiatal hernia visualized in th e supine imaging
== END 2022-04-23 09:21 | disposition home or self-care (01) ==
LOC: RAD 09:20
PROVIDERS: PCP Family Medicine; Visit Provider Surgery
DX: D50.9 Iron deficiency anemia, unspecified (principal); K21.9 Gastro-esophageal reflux disease without esophagitis; K44.9 Diaphragmatic hernia without obstruction or gangrene
CPT/HCPCS: 74250

== ENCOUNTER 2022-05-04 11:26 | Outpatient (CLI) | payer MEDICARE, SELFPAY ==
--- NOTE | 2022-05-04 11:55 | FL_ITS ---
WS: [id number] Barium swallow and esophagram, upper GI series with air, 05/04/2022 Clinical Data: Iron deficiency, anemia Comparison: Small bowel series, 04/23/2022 Fluoroscopy time: 1min [id number] # of spot films: 12 Findings: The patient swallowed the thick and thin barium, and it flowed through the hypopharynx without hesita tion. No stricture, mass, polyp or erosion was seen. There are clips in the thyroid from surgery. The barium passed into the esophagus and there was poor motility throughout. There was a moderate hia fermin hernia with moderate gastroesophageal reflux. No distal esophageal ulcer, erosion, mass or strict ure was seen. There is herniation of the proximal third of the stomach above the diaphragm. The barium flowed into the stomach which was well distended. No erosion, polyp, mass or deformity co uld be seen. No gastric ulcer was present. Barium then entered the duodenal bulb which distended normally without ulceration. The proximal small bowel is normal. FL/FL upper GI w air* [id number] Impression: 1. Poor esophageal motility. 2. Moderate gastroesophageal reflux with hiatal hernia. 3. 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
== END 2022-05-04 11:27 | disposition home or self-care (01) ==
PROVIDERS: PCP Family Medicine; Visit Provider Surgery
DX: D50.9 Iron deficiency anemia, unspecified; K21.9 Gastro-esophageal reflux disease without esophagitis; K44.9 Diaphragmatic hernia without obstruction or gangrene
CPT/HCPCS: 74246

== ENCOUNTER → 2022-05-08 12:55 | Outpatient (BNVA) | payer MEDICARE, SELFPAY | PROVIDERS: PCP Family Medicine; Visit Provider Orthopaedic Surgery | DX: Z47.89 Encounter for other orthopedic aftercare (principal) | CPT/HCPCS: 99024 ==

== ENCOUNTER → 2022-05-09 10:06 | Outpatient (BNVA) | payer MEDICARE, SELFPAY | PROVIDERS: PCP Family Medicine; Visit Provider Surgery | DX: Z09 Encounter for follow-up examination after completed treatment for conditions other than malignant neoplasm (principal); D50.8 Other iron deficiency anemias | CPT/HCPCS: 99213 ==

== ENCOUNTER → 2022-06-11 13:34 | Outpatient (BNVA) | payer MEDICARE, SELFPAY | PROVIDERS: PCP Family Medicine; Visit Provider Specialist | DX: M16.12 Unilateral primary osteoarthritis, left hip (principal) | CPT/HCPCS: 73502; 99204; 99205 ==